=== PATIENT | male | born 1975 | race Caucasian/White ===

== ENCOUNTER 2018-01-10 18:41 | Emergency (ER) ==
[2018-01-10 18:46] VITALS: BP 123/85; TEMP 97.6; BMI 23.6
[2018-01-10] MEDS ORDERED: SODIUM CHLORIDE 500 ML IV STA (20:29)
[2018-01-10] MEDS ORDERED: ZOFRAN 4 MG/2 ML IVP STA (20:30)
--- NOTE | 2018-01-10 20:35 | ED.PDOC ---
General ED Provider: Dr. TABATHA BLAS Chief Complaint: Nausea/Vomiting Stated Complaint: Been vomiting since today morning, 4 times. Time Seen by Physician: 20:34 Mode of Arrival: Walk-In Information Source: Patient Primary Care Provider: KALINA POLLARD Nursing and Triage Documentation Reviewed and Agree: Yes Reviewed sepsis parameters & appropriate labs ordered?: No System Inflammatory Response Syndrome: Not Applicable Sepsis Protocol: For patient's 13 years and over: Temp is 96.8 and below OR 101 and greater Pulse >90 BPM Resp >20/minute Acutely Altered Mental Status Are patient's symptoms suggestive of a new infection, such as: -Pneumonia -Skin, Soft Tissue -Endocarditis -UTI -Bone, Joint Infection -Implantable Device -Acute Abdominal Infection -Wound Infection -Meningitis -Blood Stream Catheter Infection -Unknown GI Complaint Exam - Vomiting/Diarrhea Complaint/Exam Symptoms Are: Still present Episodes of Vomiting over last 24 Hours: 4 Initial Severity: Moderate Current Severity: None Character of Vomiting: Reports: Non-bilious Aggravating: Reports: Food, Liquids Alleviating: Reports: None Associated Signs and Symptoms: Denies: Dizziness, Light-headedness, Melena, Hematemesis, Fever, Abdominal pain, Cramping Non-GI Risk Factors: Reports: None Surgical Obstruction Risk Factors: Reports: None Related Surgical History: Reports: None Abdominal Findings: Present: None Differential Diagnoses: Viral Gastroenteritis, Pancreatitis Review of Systems - Review Of Systems Constitutional: Reports: Malaise Eyes: Reports: No symptoms Ears, Nose, Mouth, Throat: Reports: No symptoms Respiratory: Reports: No symptoms Cardiac: Reports: No symptoms GI: Reports: Nausea, Vomiting : Reports: No symptoms Musculoskeletal: Reports: No symptoms Skin: Reports: No symptoms Neurological: Reports: No symptoms Endocrine: Reports: No symptoms Hematologic/Lymphatic: Reports: No symptoms All Other Systems: Reviewed and Negative Past Medical History - Past Medical History Previously Healthy: No Endocrine: Reports: None Cardiovascular: Reports: None Respiratory: Reports: None Hematological: Reports: None Gastrointestinal: Reports: None Genitourinary: Reports: None Neuro/Psych: Reports: CVA (BLEED 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 VISUAL CUT 2008), Other (MS) Musculoskeletal: Reports: None Cancer: Reports: None - Surgical History General Surgical History: Reports: Back Surgery (L4L5 LAMINECTOMY ) - Family History Family History: Reports: Other (MATERNAL AUNT MS,PER MOTHER SISTER AND COUSIN WITH NVD) - Social History Smoking Status: Current every day smoker, Heavy tobacco smoker Smoking Cessation Counseling Time: > 3 min - 10 min Hx Substance Use: No Alcohol Screening: None Physical Exam - Physical Exam Appearance: Ill-appearing Eyes: RILEY, EOMI, Conjunctiva clear ENT: Ears normal, Nose normal, Oropharynx normal Respiratory: Airway patent, Breath sounds clear, Breath sounds equal, Respirations nonlabored Cardiovascular: RRR, Pulses normal, No rub, No murmur GI/: Soft, Nontender, No masses, Bowel sounds normal, No Organomegaly Musculoskeletal: Normal strength, ROM intact, No edema, No calf tenderness Skin: Warm, Dry, Normal color Neurological: Sensation intact, Motor intact, Reflexes intact, Cranial nerves intact, Alert, Oriented Psychiatric: Affect appropriate, Mood appropriate Interpretation - Radiology Interpretation Radiology Interpretation By: Radiologist Radiology Results: Negative Exam Interpreted: CT Scan Critical Care Note - Critical Care Note Total Time (mins): 15 Course - Course Hematology/Chemistry: 01/10/18 20:45 01/10/18 20:45 Orders, Labs, Meds: Lab Review 01/10/18 01/10/18 01/10/18 20:39 20:45 20:45 WBC 11.48 H RBC 5.20 Hgb 16.9 Hct 45.9 MCV 88.3 MCH 32.5 H MCHC 36.8 H RDW Coeff of [place] 12.3 Plt Count 272 Immature Gran % (Auto) 0.2 Neut % (Auto) 82.9 Lymph % (Auto) 9.4 L [place] % (Auto) 7.1 Eos % (Auto) 0.3 Baso % (Auto) 0.1 Immature Gran # (Auto) 0.0 Neut # 9.5 H Lymph # 1.1 [place] # 0.8 Eos # 0.0 Baso # 0.0 Sodium 140 Potassium 4.3 Chloride 105 Carbon Dioxide 25 Anion Gap 14.3 BUN 9 Creatinine 0.88 Estimated GFR (MDRD) 95.00 BUN/Creatinine Ratio 10.22 Glucose 112 H Calcium 10.0 Total Bilirubin 1.1 AST 30 ALT 75 Alkaline Phosphatase 86 Total Protein 7.2 Albumin 4.5 Globulin 2.7 Albumin/Globulin Ratio 1.67 Amylase 24 L Lipase 12 Influenza A (Rapid) Negative by naat Influenza B (Rapid) Negative by naat Orders Category Date Time Status ED IV/MEDIPORT/POWERPORT .ONCE EMERGENCY 01/10/18 20:30 Active AMYLASE Stat LAB 01/10/18 20:45 Completed CBC W/ AUTO DIFF Stat LAB 01/10/18 20:45 Completed COMPREHENSIVE METABOLIC PANEL Stat LAB 01/10/18 20:45 Completed FLU A/B MOLECULAR Stat LAB 01/10/18 20:39 Completed LIPASE Stat LAB 01/10/18 20:45 Completed 0.9 % Sodium Chloride [Saline Flush] MEDS 01/10/18 20:30 Ordered 1 syr IVF PRN PRN Ondansetron HCl/Pf [Zofran 4 mg/2 ml] MEDS 01/10/18 20:30 Discontinued 4 mg IVP ONCE STA Sodium Chloride 0.9% [Sodium Chloride] 500 ml MEDS 01/10/18 20:[address] ABDOMEN/PELVIS WO CONTRAST Stat RADS 01/10/18 20:30 Completed Medications Generic Name Dose Route Start Last Admin Trade Name Freq PRN Reason Stop Dose Admin Sodium Chloride 1 syr 01/10/18 20:30 01/10/18 20:58 Saline Flush IVF 1 syr PRN PRN Administration To flush IV Discontinued Medications Generic Name Dose Route Start Last Admin Trade Name Freq PRN Reason Stop Dose Admin Sodium Chloride 500 mls @ 500 mls/hr 01/10/18 20:29 01/10/18 20:56 Sodium Chloride IV 01/10/18 21:28 500 mls/hr BOLUS STA Administration Ondansetron HCl 4 mg 01/10/18 20:30 01/10/18 20:55 Zofran 4 Mg/2 Ml IVP 01/10/18 20:31 4 mg ONCE STA Administration Vital Signs: Temp Pulse Resp BP Pulse Ox 01/10/18 18:41 97.6 F 75 20 123/85 96 Departure - Departure Time of Disposition: 22:09 Disposition: HOME SELF-CARE Discharge Problem: Viral gastroenteritis Instructions: Dehydration (ED) Condition: Stable Pt referred to PMD for follow-up: Yes IPMP verified?: No Additional Instructions: soft diet for 3-4 days Increase Hydration f/u with PMD Prescriptions: Ondansetron [Zofran Odt] 4 mg PO Q8H #20 tab.rapdis Allergies/Adverse Reactions: Allergies No Known Allergies Allergy (Verified 01/10/18 18:48) Home Medications: Ambulatory Orders Fingolimod HCl [Gilenya] 0.5 mg PO DAILY 02/08/14 Ondansetron [Zofran Odt] 4 mg PO Q8H #20 tab.rapdis 01/10/18 Disposition Discussed With: Patient, Family
--- NOTE | 2018-01-10 21:32 | CT ---
EXAM: CT scan abdomen pelvis without contrast HISTORY: Nausea vomiting abdominal pain COMPARISON: CT scan abdomen pelvis 11/09/2016 FINDINGS: Contiguous axial images obtained from lung bases to the symphysis pubis without contrast u tilizing 3-mm collimation. Sagittal and coronal reconstructions were imaged and reviewed.. The visu alized lung bases are clear. The gallbladder is fluid filled without cholelithiasis. The liver, panc reas, spleen and adrenal glands have normal unenhanced CT appear redemonstrated are numerous nonobstr uctive renal calculi bilaterally. There is no evidence of ureterolithiasis.. Atherosclerotic change s are seen involving the aorta without aneurysm formation. There is umbilical hernia containing only fat. Prostate gland normal in size. The bladder is unremarkable.. There is a normal appendix. The re is degenerative changes are noted at L4-L5. IMPRESSION: Nonobstructive bilateral nephrolithiasis. ASVD without aneurysm. Small umbilical hernia containing only fat.
== END 2018-01-10 22:42 | disposition home or self-care (01) ==
LOC: ED 18:41
DX: A08.4 Viral intestinal infection, unspecified (principal); G35 Multiple sclerosis; Z86.73 Personal history of transient ischemic attack (TIA), and cerebral infarction without residual deficits; F17.210 Nicotine dependence, cigarettes, uncomplicated
CPT/HCPCS: 36415; 80053; 82150; 83690; 85025; 87502; 96361; 96374; 99283

== ENCOUNTER 2018-02-17 14:00 | Outpatient (RCR) ==
--- NOTE | 2018-01-26 09:30 | RS.OPPTEV2 ---
Date of Note: 01/25/18 Visit #: 1 Date of Evaluation: 01/25/18 Payer Source: Insurance Surgery Performed?: No Treatment Diagnosis: L shld impingement with tight Posterior capsule, scapular dyskinesis History of Condition/Mechanism of Injury:: pt states he has had no specific injury noted. States that has been hurting since 2014. Prior Level of Function.....Patient was independent with: ADL's, Self Care, Work /Vocation, Ambulation/Mobility, Community Integration/Access Functional Limitations: Sleep, Reaching, Pushing, Pulling, Lifting, Carrying, Sitting Current Subjective/complaints:: pt states that his shld has been hurting since 2014 and finally found a doctor that took it seriously. pt states his L side was affected by his CVA in 2008 as well as was diagnosed with multiple sclerosis in 2008. Treatment Side (optional): Left *Precautions: pt with decreased sensation L side Medical History Medical History: CVA/TIA Medical History Comments:: multiple sclerosis Surgical History: Lumbar Spine Smoking Status: Current every day smoker Patient's Goals: decrease L shld pain. Pain Assessment - Pain Description Pain Location: L shld Pain Description: Sharp, Aching Current Pain Intensity: 5/10 Functional Outcome Measure UE Functional Index: 35 (56%) - G Codes & Severity Modifier G Codes & Modifier: n/a Source of G Code score: n/a Observation - Observation Posture: Forward Head, Rounded Shoulders, Increased Thoracic Kyphosis Handedness: Right Gait - Gait Pattern General Gait Pattern Observation: Ataxic Gait Gait Comments: pt with mild ataxic gait General Range of Motion: BLE WFL's. RUE WFL's Muscle Strength: RUE 5/5. RLE 5/5. LLE hip flex 4+/5, knee flex/ext 4+/5. LUE elbow flex/ext 4/5, slight decreased development director on L Shoulder ROM: Right WFL's Shoulder Muscle Strength: Right WFL's - Left Shoulder ROM Left Shoulder Flexion: 148 (AAROM) Left Shoulder Abduction: 128 (AAROM) Left Shoulder External Rotation: 38 (AAROM) Left Shoulder ROM Limitations: Soft Tissue Tightness, Muscle Weakness, Pain - Left Shoulder Strength Left Shoulder Flexion: 3- Fair- Left Shoulder Extension: 3 Fair Left Shoulder Abduction: 3- Fair- Left Shoulder Adduction: 3+ Fair+ Left Shoulder External Rotation: 3- Fair- Left Shoulder Internal Rotation: 3+ Fair+ - Special Tests Shoulder Empty Can (Supraspinatus) Test: Negative Left Shoulder Drop Arm Test: Negative Left Sternoclavicular Joint Stress Test: Negative Left Comments: pt with pain with all ROM L shld worse with flex, abd and ER. Observation of scapula with ROM: L scapula with limited movement and maltracking of scapula. R scapula with smooth movement through ROM. Palpation Palpation Findings: Tenderness, Muscle Guarding Comments:: muscle tenderness, guarding to palpation over biceps tendon, as well as superior spine of scapula Sensation - Sensation Right Upper Extremity: Intact/Normal Left Upper Extremity: Impaired Right Lower Extremity: Intact/Normal Left Lower Extremity: Impaired (n/t LUE and LLE) Balance - Sitting Balance Static Sitting Balance: Normal Dynamic Sitting Balance: Normal - Standing Balance Static Standing Balance: Normal Dynamic Standing Balance: Good - Comments Balance Assessment Comments: pt with mild ataxic gait - Treatment Modality: Ultrasound Parameters/Method Applied: 1.5w/cm2 x 7 mins Treatment Area: L shld focus in area of biceps tendon Patient Position: Supine - Heat/Cryotherapy Treatment: Cryotherapy Comments:: L shld Interventions - Exercise/Activities/Manual Therapy Exercises/Activities: pt performed pendulum ex as well as scapular retraction, shld shrugs, wall angels Manual Therapy: n/a HOME EXERCISE PROGRAM: pt given written HEP including stretch for post. capsule , scapular retraction, shld shrugs, pendulum, wall angels. - Charges Timed Code Treatment Minutes: 48 Total Treatment Time: 60 Procedures billed for this date of service:: eval med US, CP EVALUATION COMPLEXITY LEVEL EVALUATION COMPLEXITY LEVEL: HISTORY: Medium (CVA, MS, L shld impingement), EXAM OF BODY SYSTEMS: Medium (strength, pain, sensation, posture), CLINICAL PRESENTATION: Medium, CLINICAL DECISION MAKING: Medium Assessment Assessment: pt presents with L shld impingement, tight posterior capsule, scapular dyskinesis, shld pain, decreased strength, decreased ROM. Patient Education: Home Exercise Program, Education of Plan of Care Rehab Potential: Good Short Term Goals Goal #1: pt rate pain < 5/10 L shld Goal to be met by: 02/08/18 Goal #2: Improved ROM L shld flex 155 abd 135 ER 45 Goal to be met by: 02/08/18 Goal #3: Improve scapular mobility in pain free range. Goal to be met by: 02/08/18 Steam Press Operator Goals Goal #1: pt rate pain <2/10 L shld Goal to be met by: 02/22/18 Goal #2: pt independent with HEP Goal to be met by: 02/22/18 Goal #3: Improved ROM L shld flex 165 abd 155, ER 60 Goal to be met by: 02/22/18 Goal #4: pt report improved ability to perform household tasks with less pain Goal to be met by: 02/22/18 Plan - Treatment to be Provided Procedures: Therapeutic Exercises, Therapeutic Activity, Manual Therapy, Massage , Patient Education Modalities: Electrical Stimulation, Ultrasound/Phonophoresis, Cryotherapy - Treatment Plan Frequency: 3 X week Duration: 4 weeks ORDER # VISITS AND/OR THROUGH DATE: 02/24/18 - Treatment Code (1) Pain in joint, shoulder region Code(s): M25.519 - PAIN IN UNSPECIFIED SHOULDER Qualifiers: Laterality: left Qualified Code(s): M25.512 - Pain in left shoulder (2) Impingement syndrome, shoulder, left Code(s): M75.42 - IMPINGEMENT SYNDROME OF LEFT SHOULDER (3) Scapular dyskinesis Code(s): G25.89 - OTHER SPECIFIED EXTRAPYRAMIDAL AND MOVEMENT DISORDERS (4) Muscle weakness Code(s): M62.81 - MUSCLE WEAKNESS (GENERALIZED)
--- NOTE | 2018-01-26 16:33 | RS.OPPTDN ---
Subjective Date of Note: 01/26/18 Visit #: 2 Date of Evaluation: 01/25/18 Payer Source: Insurance Treatment Diagnosis: L shld impingement with tight Posterior capsule, scapular dyskinesis Current Subjective/complaints:: Patient reports left shoulder pain that limits daily activity. States he frequently is in supine position to try to relieve pain. *Precautions: pt with decreased sensation L side Pain Assessment - Pain Description Pain Location: Left shoulder Pain Description: Aching Current Pain Intensity: 5/10 Other Comments regarding Pain:: Aching all the time, but is more of a "nerve pain" with certain movements. - Treatment Modality: US with ES (Comb.) Parameters/Method Applied: [id number] to the left shoulder joint and scapular region. Patient Position: Sitting - Heat/Cryotherapy Treatment: Hot Pack, Cryotherapy (HP [id number] to the left shoulder prior to USCOM and EX. CP [id number] to shoulder following. ) Interventions - Exercise/Activities/Manual Therapy Exercises/Activities: Scap retraction. Isometric shoulder extension with retraction. AAROM of the left shoulder. Shouler shrugs. Discussed dorrway ant chest stretch, 3 position. Total minutes of Exercise: 10mins Manual Therapy: [id number] Friction massage to the left shoulder biceps tendon and passive stretch. Mobilization of the left scapula. Myofascial release at upper traps and posterior shoulder joint. Shoulder joint and scap mobs. Posterior capsule stretch. Anterior chest stretch with towel roll along thoracic spine. Total minutes of Manual Therapy: 18mins HOME EXERCISE PROGRAM: pt given written HEP including stretch for post. capsule , scapular retraction, shld shrugs, pendulum, wall angels. Doorway stretch, 3 postion and isometric bilateral shoulder ext with scap retraction. - Charges Timed Code Treatment Minutes: 40mins Total Treatment Time: 62mins Procedures billed for this date of service:: HP, USCOM, MT, EX Assessment: Patient motivated to work on HEP. Reported decrease in pain following treatment. Patient Education: Education of diagnosis, Body/Joint mechanics, Home Exercise Program Comments: Patient education of shoulder mechanics and HEP. Patient given copy of new exercises. Patient demonstrates compliance with HEP?: Yes Short Term Goals Goal #1: pt rate pain < 5/10 L shld Goal to be met by: 02/08/18 Progress towards Goal:: Progressing Goal #2: Improved ROM L shld flex 155 abd 135 ER 45 Goal to be met by: 02/08/18 Progress towards Goal:: Progressing Goal #3: Improve scapular mobility in pain free range. Goal to be met by: 02/08/18 Shelter Goals Goal #1: pt rate pain <2/10 L shld Goal to be met by: 02/22/18 Goal #2: pt independent with HEP Goal to be met by: 02/22/18 Progress towards goal: Progressing Goal #3: Improved ROM L shld flex 165 abd 155, ER 60 Goal to be met by: 02/22/18 Goal #4: pt report improved ability to perform household tasks with less pain Goal to be met by: 02/22/18 Plan PLAN OF CARE EXPIRES ON:: 02/22/18 ORDER # VISITS AND/OR THROUGH DATE: 02/22/18 PLAN: Continue modalities and progress HEP to reduce pain and increase functional activity level.
--- NOTE | 2018-02-01 09:07 | RS.OPPTDN ---
Subjective Date of Note: 01/31/18 Visit #: 3 Date of Evaluation: 01/25/18 Payer Source: Insurance Treatment Diagnosis: L shld impingement with tight Posterior capsule, scapular dyskinesis Current Subjective/complaints:: Patient reports he is working on HEP. Reports left shoulder pain is better following treatment. *Precautions: pt with decreased sensation L side Pain Assessment - Pain Description Pain Location: Left shoulder and scapular region Current Pain Intensity: moderate, mild following treatment - Treatment Modality: US with ES (Comb.) Parameters/Method Applied: [id number] with US at 1.5w/cm2 and Estim at 8-9 p.v. to the left shoulder with focus on anterior joint, posterior joint, and distal upper traps. Patient Position: Sitting Interventions - Exercise/Activities/Manual Therapy Exercises/Activities: AAROM of the left shoulder. Scap retraction. Isometric shoulder extension with retraction. Shouler shrugs. Passive stretch of lats with UE overhead. Blue theraband for bilateral shoulder ER and scapular retraction. Discussed stretching in HEP. Total minutes of Exercise: 15mins Manual Therapy: [id number] Friction massage to the left shoulder biceps tendon and passive stretch. Mobilization of the left scapula. Myofascial release at upper traps and posterior shoulder joint. Shoulder joint and scap mobs. Posterior capsule stretch. Anterior chest stretch. Blue theraband for bilateral shoulder ER and scap retraction. Total minutes of Manual Therapy: 15mins HOME EXERCISE PROGRAM: pt given written HEP including stretch for post. capsule , scapular retraction, shld shrugs, pendulum, wall angels. Doorway stretch, 3 postion and isometric bilateral shoulder ext with scap retraction. - Charges Timed Code Treatment Minutes: 40mins Total Treatment Time: 45mins Procedures billed for this date of service:: EMELY, CLARISSA, EX Assessment: Patient responding well to treatment with reports od decreased pain with stretching and AROM. Patient Education: Body/Joint mechanics, Home Exercise Program, Activity Modification Patient demonstrates compliance with HEP?: Yes Short Term Goals Goal #1: pt rate pain < 5/10 L shld Goal to be met by: 02/08/18 Progress towards Goal:: Progressing Goal #2: Improved ROM L shld flex 155 abd 135 ER 45 Goal to be met by: 02/08/18 Progress towards Goal:: Progressing Goal #3: Improve scapular mobility in pain free range. Goal to be met by: 02/08/18 Progress towards Goal:: Progressing Blind Stitch Machine Operator Goals Goal #1: pt rate pain <2/10 L shld Goal to be met by: 02/22/18 Goal #2: pt independent with HEP Goal to be met by: 02/22/18 Progress towards goal: Progressing Goal #3: Improved ROM L shld flex 165 abd 155, ER 60 Goal to be met by: 02/22/18 Goal #4: pt report improved ability to perform household tasks with less pain Goal to be met by: 02/22/18 Plan PLAN OF CARE EXPIRES ON:: 02/22/18 ORDER # VISITS AND/OR THROUGH DATE: 02/22/18 PLAN: Continue modalities and progress exercise to reduce pain and increase functional use of the left UE.
--- NOTE | 2018-02-03 08:41 | RS.OPPTDN ---
Subjective Date of Note: 02/02/18 Visit #: 4 Date of Evaluation: 01/25/18 Payer Source: Insurance Treatment Diagnosis: L shld impingement with tight Posterior capsule, scapular dyskinesis Current Subjective/complaints:: Patient reports continued left shoulder pain, but is working on HEP with focus on stretching. Reports some pain reduction following treatment. *Precautions: pt with decreased sensation L side Pain Assessment - Pain Description Pain Location: Left shoulder and scapular region Current Pain Intensity: mild to mod - Treatment Modality: US with ES (Comb.) Parameters/Method Applied: [id number] US to 1.5w/cm2 and Estim 9-10p.v. to the left shoulder joint and distal upper traps. Patient Position: Right Sidelying - Heat/Cryotherapy Treatment: Cryotherapy ([id number] to the left shoulder following treatment. Patient in supine. ) Interventions - Exercise/Activities/Manual Therapy Exercises/Activities: PROM and end-range stretching of the left shoulder. AAROM of the left shoulder. Isometric shoulder extension with retraction. Shoulder shrugs. Began serratus punch. Reviewed IR stretch with towel behind the back. Blue theraband for bilateral shoulder ER and scapular retraction. Patient given copy of additional exercises. Total minutes of Exercise: 18mins Manual Therapy: [id number] Friction massage to the left shoulder biceps tendon and passive stretch. Mobilization of the left scapula. Myofascial release at upper traps and posterior shoulder joint. Shoulder joint and scap mobs. Posterior capsule stretch. Total minutes of Manual Therapy: 15mins HOME EXERCISE PROGRAM: pt given written HEP including stretch for post. capsule , scapular retraction, shld shrugs, pendulum, wall angels. Doorway stretch, 3 postion and isometric bilateral shoulder ext with scap retraction. IR stretch with towel behind back. - Charges Timed Code Treatment Minutes: 45mins Total Treatment Time: 60mins Procedures billed for this date of service:: USCOM, EX, MT, CP Assessment: Patient progressing with stretching. May need additional treatment and joint correction exercise to see more pain relief. Patient Education: Body/Joint mechanics, Home Exercise Program Patient demonstrates compliance with HEP?: Yes Short Term Goals Goal #1: pt rate pain < 5/10 L shld Goal to be met by: 02/08/18 Progress towards Goal:: Progressing Goal #2: Improved ROM L shld flex 155 abd 135 ER 45 Goal to be met by: 02/08/18 Progress towards Goal:: Progressing Goal #3: Improve scapular mobility in pain free range. Goal to be met by: 02/08/18 Progress towards Goal:: Progressing Longterm Goals Goal #1: pt rate pain <2/10 L shld Goal to be met by: 02/22/18 Goal #2: pt independent with HEP Goal to be met by: 02/22/18 Progress towards goal: Progressing Goal #3: Improved ROM L shld flex 165 abd 155, ER 60 Goal to be met by: 02/22/18 Goal #4: pt report improved ability to perform household tasks with less pain Goal to be met by: 02/22/18 Plan PLAN OF CARE EXPIRES ON:: 02/22/18 ORDER # VISITS AND/OR THROUGH DATE: 02/22/18 PLAN: COntinue modalities and progress exercise to reduce pain and increase functional activity level.
--- NOTE | 2018-02-07 16:36 | RS.OPPTDN ---
Subjective Date of Note: 02/07/18 Visit #: 5 Date of Evaluation: 01/25/18 Payer Source: Insurance Treatment Diagnosis: L shld impingement with tight Posterior capsule, scapular dyskinesis Current Subjective/complaints:: Patient reports she is not sure of how much progress he is making. He then reports he has noticed less pain in the left shoulder when driving, which "killed" him prior to starting therapy. *Precautions: pt with decreased sensation L side Pain Assessment - Pain Description Pain Location: Left shoulder Current Pain Intensity: 5/10 Other Comments regarding Pain:: States pain was 7-8/10 on average prior to therapy. - Treatment Modality: US with ES (Comb.) Parameters/Method Applied: [id number] US at 1.5w/cm2 and Estim 9-10p.v. to the left shoulder joint with focus on anterior joint for biceps. Patient Position: Right Sidelying Interventions - Exercise/Activities/Manual Therapy Exercises/Activities: PROM and end-range stretching of the left shoulder. AAROM of the left shoulder. Isometric shoulder flex, ext, add, abd, IR, and ER, multiple reps. Shoulder shrugs and serratus punch. All in supine. In sitting, isometrics, shoulder shrugs and scap retraction. Continues theraband with HEP. Total minutes of Exercise: 14mins Manual Therapy: [id number] Friction massage to the left shoulder biceps tendon and passive stretch. Mobilization of the left scapula. Myofascial release at upper traps and posterior shoulder joint. Shoulder joint and scap mobs. Posterior capsule stretch. HOME EXERCISE PROGRAM: pt given written HEP including stretch for post. capsule , scapular retraction, shld shrugs, pendulum, wall angels. Doorway stretch, 3 postion and isometric bilateral shoulder ext with scap retraction. IR stretch with towel behind back. - Charges Timed Code Treatment Minutes: 40mins Total Treatment Time: 45mins Procedures billed for this date of service:: USCOM, EX, MT Assessment: Patient unsure of progress but then reports reduction in pain level with driving. Patient Education: Home Exercise Program Patient demonstrates compliance with HEP?: Yes Short Term Goals Goal #1: pt rate pain < 5/10 L shld Goal to be met by: 02/08/18 Progress towards Goal:: Partially Met Goal #2: Improved ROM L shld flex 155 abd 135 ER 45 Goal to be met by: 02/08/18 Progress towards Goal:: Progressing Goal #3: Improve scapular mobility in pain free range. Goal to be met by: 02/08/18 Progress towards Goal:: Progressing Residential Goals Goal #1: pt rate pain <2/10 L shld Goal to be met by: 02/22/18 Goal #2: pt independent with HEP Goal to be met by: 02/22/18 Progress towards goal: Partially Met Goal #3: Improved ROM L shld flex 165 abd 155, ER 60 Goal to be met by: 02/22/18 Goal #4: pt report improved ability to perform household tasks with less pain Goal to be met by: 02/22/18 Plan PLAN OF CARE EXPIRES ON:: 02/22/18 ORDER # VISITS AND/OR THROUGH DATE: 02/22/18 PLAN: Continue modalities and progress exercise to reduce pain and increase functional use of the left UE.
--- NOTE | 2018-02-14 15:43 | RS.OPPTDN ---
Subjective Date of Note: 02/10/18 Visit #: 6 Date of Evaluation: 01/25/18 Payer Source: Insurance Treatment Diagnosis: L shld impingement with tight Posterior capsule, scapular dyskinesis Current Subjective/complaints:: Reports pain may be a little better. He can drive without left shoulder pain. *Precautions: pt with decreased sensation L side Pain Assessment - Pain Description Pain Location: Left shoulder Current Pain Intensity: Does not rate Other Comments regarding Pain:: Reports pain is worse at night, but he is sleeping better. - Treatment Modality: Ultrasound Parameters/Method Applied: [id number] at 1.5w/cm2 to the left shoulder with focus on the anterior shoulder joint/anterior. - Heat/Cryotherapy Treatment: Cryotherapy (5mins ice massage to the left anterior shoulder joint following friction massage. Patient in supine, ) Interventions - Exercise/Activities/Manual Therapy Exercises/Activities: PROM and end-range stretching of the left shoulder. AAROM of the left shoulder. Total minutes of Exercise: 5mins Manual Therapy: [id number] Friction massage to the left shoulder biceps tendon and passive stretch. Mobilization of the left scapula. Myofascial release at upper traps and posterior shoulder joint. Shoulder joint and scap mobs. Posterior capsule stretch. Total minutes of Manual Therapy: 14mins HOME EXERCISE PROGRAM: pt given written HEP including stretch for post. capsule , scapular retraction, shld shrugs, pendulum, wall angels. Doorway stretch, 3 postion and isometric bilateral shoulder ext with scap retraction. IR stretch with towel behind back. - Charges Timed Code Treatment Minutes: 35mins Total Treatment Time: 40mins Procedures billed for this date of service:: US, MT, CP Assessment: Patient reporting some progress with ability to perform functional activities without increased pain. Patient Education: Home Exercise Program Short Term Goals Goal #1: pt rate pain < 5/10 L shld Goal to be met by: 02/08/18 Progress towards Goal:: Partially Met Goal #2: Improved ROM L shld flex 155 abd 135 ER 45 Goal to be met by: 02/08/18 Progress towards Goal:: Progressing Goal #3: Improve scapular mobility in pain free range. Goal to be met by: 02/08/18 Progress towards Goal:: Progressing Long-Term Goals Goal #1: pt rate pain <2/10 L shld Goal to be met by: 02/22/18 Goal #2: pt independent with HEP Goal to be met by: 02/22/18 Progress towards goal: Met Goal #3: Improved ROM L shld flex 165 abd 155, ER 60 Goal to be met by: 02/22/18 Progress towards goal: Partially Met Goal #4: pt report improved ability to perform household tasks with less pain Goal to be met by: 02/22/18 Plan PLAN OF CARE EXPIRES ON:: 02/22/18 ORDER # VISITS AND/OR THROUGH DATE: 02/22/18 PLAN: Continue modalities, friction massage, and exericse to reduce pain and increase functional use of the left UE.
--- NOTE | 2018-02-14 16:18 | RS.OPPTDN ---
Subjective Date of Note: 02/14/18 Visit #: 7 Date of Evaluation: 01/25/18 Payer Source: Insurance Treatment Diagnosis: L shld impingement with tight Posterior capsule, scapular dyskinesis Current Subjective/complaints:: Patient reports left shoulder ROM is better, pain in not as intense, and he is sleeping more. He continues to have pain that limits the use of the left UE with some daily activities. *Precautions: pt with decreased sensation L side Pain Assessment - Pain Description Pain Location: Left shoulder Current Pain Intensity: mod Other Comments regarding Pain:: Patient reports pain with friction massage to the anterior shoulder joint and joint pain with end range stretching into flexion and abduction. - Treatment Modality: US with ES (Comb.) Parameters/Method Applied: [id number] US at 1.5w/cm2 and Estim at 8-9 p.v. to the left shoulder with focus on anterior joint. Patient Position: Supine - Treatment Modality: Class 4 Laser Parameters/Method Applied: Trial Laser 10mins Chronic Shoulder Pain protocol to the left shoulder joint. - Heat/Cryotherapy Treatment: Cryotherapy (ice massage to the left anterior shoulder joint at biceps tendon. 5mins. ) Interventions - Exercise/Activities/Manual Therapy Exercises/Activities: PROM and end-range stretching of the left shoulder. AAROM of the left shoulder. Isometric shoulder flex, ext, add, abd, IR, and ER. Doorway stretching. Total minutes of Exercise: 15mins Manual Therapy: [id number] Friction massage to the left shoulder biceps tendon and passive stretch. Mobilization of the left scapula and shoulder joint. Myofascial release at upper traps and posterior shoulder joint. Posterior capsule stretch. Ise massage. Total minutes of Manual Therapy: 15mins HOME EXERCISE PROGRAM: pt given written HEP including stretch for post. capsule , scapular retraction, shld shrugs, pendulum, wall angels. Doorway stretch, 3 postion and isometric bilateral shoulder ext with scap retraction. IR stretch with towel behind back. - Charges Timed Code Treatment Minutes: 40mins(50mins) Total Treatment Time: 50mins Procedures billed for this date of service:: US, MT, EX, (Trial Laser) Assessment: Patient reporting slow improvement. He shoulder benefit from continued friction massage to the biceps tendon. Patient Education: Home Exercise Program Patient demonstrates compliance with HEP?: Yes Short Term Goals Goal #1: pt rate pain < 5/10 L shld Goal to be met by: 02/08/18 Progress towards Goal:: Partially Met Goal #2: Improved ROM L shld flex 155 abd 135 ER 45 Goal to be met by: 02/08/18 Progress towards Goal:: Partially Met Goal #3: Improve scapular mobility in pain free range. Goal to be met by: 02/08/18 Progress towards Goal:: Partially Met Safety Associate Goals Goal #1: pt rate pain <2/10 L shld Goal to be met by: 02/22/18 Goal #2: pt independent with HEP Goal to be met by: 02/22/18 Progress towards goal: Met Goal #3: Improved ROM L shld flex 165 abd 155, ER 60 Goal to be met by: 02/22/18 Progress towards goal: Partially Met Goal #4: pt report improved ability to perform household tasks with less pain Goal to be met by: 02/22/18 Progress towards goal: Partially Met Plan PLAN OF CARE EXPIRES ON:: 02/22/18 ORDER # VISITS AND/OR THROUGH DATE: 02/22/18 PLAN: Continue modalities, manual therapy, and exercise to reduce pain and increase functional use of the left UE.
--- NOTE | 2018-02-20 08:32 | RS.OPPTDN ---
Subjective Date of Note: 02/17/18 Visit #: 8 Date of Evaluation: 01/25/18 Payer Source: Insurance Treatment Diagnosis: L shld impingement with tight Posterior capsule, scapular dyskinesis Current Subjective/complaints:: pt states that he has been doing his stretches at home. He states he is still having discomfort, however not as intense as before. He states that his pain is more of an ache now instead of sharp pain. *Precautions: pt with decreased sensation L side Pain Assessment - Pain Description Pain Location: L shld Pain Description: Aching Other Comments regarding Pain:: States his pain is not keeping him awake now. - Treatment Modality: US with ES (Comb.) Parameters/Method Applied: US 1.5w/cm2, estim 10 p.v. Treatment Area: anterior L shld as well as posterior L shld Patient Position: Right Sidelying Comments: anterior: supine, posterior shld R sidelying - Heat/Cryotherapy Comments:: ice massage to L ant shld area of biceps tendon Interventions - Exercise/Activities/Manual Therapy Exercises/Activities: pt received PROM with stretching at end range L shld flex , abd, rotation. pt performed wall stretching as well as pulleys. pt is very aggressive with stretch, possibly too aggressive advised pt to not pull so aggressively on piyush due to could possibly injure shld. pt also performed isometric strengthening ex. Manual Therapy: pt received friction massage to ant shld joint as well as ice massage HOME EXERCISE PROGRAM: pt given written HEP including stretch for post. capsule , scapular retraction, shld shrugs, pendulum, wall angels. Doorway stretch, 3 postion and isometric bilateral shoulder ext with scap retraction. IR stretch with towel behind back. - Charges Timed Code Treatment Minutes: 58 Total Treatment Time: 58 Procedures billed for this date of service:: us/estim combo, manual, ex Assessment: pt is progressing slowly toward goals. pt has demonstrated improvement with ROM, decreased pain. pt continues to be limited with flex, abd , ER as well as continues with aching pain in L shld, reports most pain in ant shld. Patient demonstrates compliance with HEP?: Yes Short Term Goals Goal #1: pt rate pain < 5/10 L shld Goal to be met by: 02/08/18 Progress towards Goal:: Met Goal #2: Improved ROM L shld flex 155 abd 135 ER 45 Goal to be met by: 02/08/18 Progress towards Goal:: Partially Met Goal #3: Improve scapular mobility in pain free range. Goal to be met by: 02/08/18 Progress towards Goal:: Partially Met Alf Goals Goal #1: pt rate pain <2/10 L shld Goal to be met by: 02/22/18 Progress towards goal: Progressing Goal #2: pt independent with HEP Goal to be met by: 02/22/18 Progress towards goal: Met Goal #3: Improved ROM L shld flex 165 abd 155, ER 60 Goal to be met by: 02/22/18 Progress towards goal: Partially Met Goal #4: pt report improved ability to perform household tasks with less pain Goal to be met by: 02/22/18 Progress towards goal: Partially Met Plan PLAN OF CARE EXPIRES ON:: 02/22/18 ORDER # VISITS AND/OR THROUGH DATE: 02/22/18 PLAN: continue to progress with stretching as well as strengthening L shld
== END 2018-02-18 ==
PROVIDERS: ATTEND Orthopaedic Surgery
DX: M75.42 Impingement syndrome of left shoulder (principal); M25.512 Pain in left shoulder; G25.89 Other specified extrapyramidal and movement disorders; M62.81 Muscle weakness (generalized)

== ENCOUNTER 2018-03-20 13:00 | Outpatient (RCR) ==
--- NOTE | 2018-02-20 16:24 | RS.OPPTDN ---
Subjective Date of Note: 02/20/18 Visit #: 9 Date of Evaluation: 01/25/18 Payer Source: Insurance Treatment Diagnosis: L shld impingement with tight Posterior capsule, scapular dyskinesis Current Subjective/complaints:: Patient reports he has improved left shoulder ROM with less pain. Reports he is able to get in pain free positions to sleep. Patient agrees the treatment of USCOM and friction massage followed by stretching have been the most effective. *Precautions: pt with decreased sensation L side Pain Assessment - Pain Description Pain Location: Left shoulder Current Pain Intensity: does not rate on scale Other Comments regarding Pain:: Reports pain not as intense or constant. Reports AROM with only pain at end range. - Treatment Modality: US with ES (Comb.) Parameters/Method Applied: [id number] US at 1.5w/cm2 and 9p.v. to the left anterior shoulder joint prior to MT. Patient Position: Supine - Heat/Cryotherapy Treatment: Cryotherapy (x5mins ice massage to the left anterior shoulder. Patient in supine. ) Interventions - Exercise/Activities/Manual Therapy Exercises/Activities: PROM and end-range stretching of the left shoulder. AAROM of the left shoulder. Isometric shoulder flex, ext, add, abd, IR, and ER. Doorway stretching. Total minutes of Exercise: 8mins Manual Therapy: [id number] Friction massage to the left shoulder biceps tendon and passive stretch. Mobilization of the left scapula and shoulder joint. Myofascial release at upper traps and posterior shoulder joint. Distraction of the shoulder joint. HOME EXERCISE PROGRAM: pt given written HEP including stretch for post. capsule , scapular retraction, shld shrugs, pendulum, wall angels. Doorway stretch, 3 postion and isometric bilateral shoulder ext with scap retraction. IR stretch with towel behind back. - Charges Timed Code Treatment Minutes: 38mins Total Treatment Time: 45mins Procedures billed for this date of service:: USCOM, MT, CP Assessment: Patient reporting improvement in functional activities even though he is unable to rate his pain on the pain scale. Patient Education: Home Exercise Program Patient demonstrates compliance with HEP?: Yes Short Term Goals Goal #1: pt rate pain < 5/10 L shld Goal to be met by: 02/08/18 Progress towards Goal:: Partially Met Goal #2: Improved ROM L shld flex 155 abd 135 ER 45 Goal to be met by: 02/08/18 Progress towards Goal:: Partially Met Goal #3: Improve scapular mobility in pain free range. Goal to be met by: 02/08/18 Progress towards Goal:: Partially Met Senior Living Goals Goal #1: pt rate pain <2/10 L shld Goal to be met by: 02/22/18 Goal #2: pt independent with HEP Goal to be met by: 02/22/18 Progress towards goal: Met Goal #3: Improved ROM L shld flex 165 abd 155, ER 60 Goal to be met by: 02/22/18 Progress towards goal: Partially Met Goal #4: pt report improved ability to perform household tasks with less pain Goal to be met by: 02/22/18 Progress towards goal: Partially Met Plan PLAN OF CARE EXPIRES ON:: 02/22/18 ORDER # VISITS AND/OR THROUGH DATE: 02/22/18 PLAN: Continue modalities, manual therapy, and exercise to reduce pain and progress functional use of the left UE.
--- NOTE | 2018-02-23 16:19 | RS.OPPTDN ---
Subjective Date of Note: 02/23/18 Visit #: 10 Date of Evaluation: 01/25/18 Payer Source: Insurance Treatment Diagnosis: L shld impingement with tight Posterior capsule, scapular dyskinesis Current Subjective/complaints:: Patient continues to have difficulty rating his left shoulder pain, but reports improvement in pain throughout the day with ADL' s. *Precautions: pt with decreased sensation L side Pain Assessment - Pain Description Pain Location: Left shoulder Pain Description: Sharp, Aching Other Comments regarding Pain:: Patient cannot rate pain on scale, but reports pain is less intense with functional daily activities. - Treatment Modality: US with ES (Comb.) Parameters/Method Applied: [id number] US at 1.5w/cm2 and Estim at 8-9p.v. to the left shoulder joint with focus on the anterior joint. USCOM prior to MT and EX. Patient Position: Supine - Heat/Cryotherapy Treatment: Cryotherapy (x8mins ice massage to the left shoulder joint with focus on the anterior joint. Patient in supine. ) Interventions - Exercise/Activities/Manual Therapy Exercises/Activities: PROM and end-range stretching of the left shoulder. AAROM of the left shoulder. Isometric shoulder flex, ext, add, abd, IR, and ER. Green theraband for serratus punch. Supine with towel roll for anterior chest and biceps stretch. Reveiwed HEP including doorway stretching. Ended with additional long stretching of the left shoulder. Total minutes of Exercise: 15mins Manual Therapy: [id number] Friction massage to the left shoulder biceps tendon and passive stretch. Mobilization of the left scapula and shoulder joint. Myofascial release at upper traps and posterior shoulder joint. Trigger point release at the infraspinatus. Distraction of the shoulder joint. Total minutes of Manual Therapy: 20mins HOME EXERCISE PROGRAM: pt given written HEP including stretch for post. capsule , scapular retraction, shld shrugs, pendulum, wall angels. Doorway stretch, 3 postion and isometric bilateral shoulder ext with scap retraction. IR stretch with towel behind back. - Charges Timed Code Treatment Minutes: 55mins Total Treatment Time: 55mins Procedures billed for this date of service:: USCOM, MT, EX, CP Assessment: Patient responding to treatment with reports of reduced left shoulder pain with functional activities. Meeting goals with PROM of the left shoulder and demos potential for progress with AROM. Patient Education: Home Exercise Program Patient demonstrates compliance with HEP?: Yes Short Term Goals Goal #1: pt rate pain < 5/10 L shld Goal to be met by: 02/08/18 Progress towards Goal:: Partially Met Goal #2: Improved ROM L shld flex 155 abd 135 ER 45 Goal to be met by: 02/08/18 Progress towards Goal:: Partially Met Comments:: PROM left shoulder flex 170, abd 150, and ER 75 degrees in supine. Goal #3: Improve scapular mobility in pain free range. Goal to be met by: 02/08/18 Progress towards Goal:: Met Retirement Goals Goal #1: pt rate pain <2/10 L shld Goal to be met by: 02/22/18 Progress towards goal: Progressing Goal #2: pt independent with HEP Goal to be met by: 02/22/18 Progress towards goal: Met Goal #3: Improved ROM L shld flex 165 abd 155, ER 60 Goal to be met by: 02/22/18 Progress towards goal: Partially Met Goal #4: pt report improved ability to perform household tasks with less pain Goal to be met by: 02/22/18 Progress towards goal: Met Plan PLAN OF CARE EXPIRES ON:: 02/23/18 ORDER # VISITS AND/OR THROUGH DATE: 02/23/18 PLAN: Plan extended one day to allow patient to complete the week of treatment. Will hold treatment until patient has follow-up with physician. May continue with new physician orders.
--- NOTE | 2018-03-15 13:51 | RS.PTSUM ---
Progress Note/Summary Date of Note: 03/14/18 Date of Evaluation: 01/25/18 Number of Visits: 11 Reporting Period for this Progress Note: 01/25/18-03/14/18 Current Complaints/Gains: pt reports that he returned to see Dr. Ferguson and received a new order to resume PT. pt states that he continues to have L shld pain constant, however is less than at eval. Objective Measurements/Presentation: L shld flex AROM 156, L shld abd 150. pt with decreased scapular ROM as well as pain noted in ant shld. pt presents with tightness at end of AROM. G Codes: n/a Source of G Code Score: n/a - Short Term Goals Goal #1: pt report pain decreased in severity and no longer constant. Goal to be met by: 04/04/18 (revised 03/14/18) Goal #2: Improved ROM L shld flex 160 abd 165 ER 60 Goal to be met by: 04/04/18 (revised 03/14/18) Goal #3: Improve scapular mobility in pain free range. Goal to be met by: 02/08/18 Progress towards Goal:: Met - Correction Goals Goal #1: pt report no pain at rest in L shld, pain not interrupting sleep Goal to be met by: 04/25/18 (revised 03/14/18) Goal #2: pt independent with HEP, to continue with program after dc Goal to be met by: 04/25/18 (revised 03/14/18) Goal #3: Improved ROM L shld flex 175 abd 170, ER 65 Goal to be met by: 04/25/18 (revised 03/14/18) Goal #4: pt report improved ability to perform normal tasks with less pain Goal to be met by: 04/25/18 (revised 03/14/18) - Assessment Assessment of Improvement/Progress: pt has progressed with increased ROM as well as decreased pain and increased strength. pt has met several previous goals. Feel pt would continue to benefit from skilled PT for therex for strengthening, stretching as well as modalities to improve ROM and decrease pain. Summary: Patient has made progress towards goals., Patient demonstrates potential to gain increased function with therapy - Plan Plan: Continue Plan of Care Comments: new order received Frequency: 2-3x a week Duration: 6 weeks PLAN OF CARE EXPIRES ON:: 04/25/18 ORDER # VISITS AND/OR THROUGH DATE: 04/25/18
--- NOTE | 2018-03-16 13:36 | RS.OPPTDN ---
Subjective Date of Note: 03/14/18 Visit #: 11 Date of Evaluation: 01/25/18 Payer Source: Insurance Treatment Diagnosis: L shld impingement with tight Posterior capsule, scapular dyskinesis Current Subjective/complaints:: Reports progress with reduction in left shoulder pain intensity. *Precautions: pt with decreased sensation L side Pain Assessment - Pain Description Pain Location: Left shoulder joint Other Comments regarding Pain:: Does not rate on 0/10 scale. Does report pain intensity is less and he is able to perform more activities without aggravating symptoms. - Treatment Modality: US with ES (Comb.) Parameters/Method Applied: [id number] with US at 1.5w/cm2 and Estim at 9-11p.v. to the left shoulder with focus at anterior joint, prior to MT and ice massage. Patient Position: Supine - Heat/Cryotherapy Treatment: Cryotherapy (Ended with 5mins ice massage to the left anterior shoulder joint at the biceps tendons. Ptaient in supine. ) Interventions - Exercise/Activities/Manual Therapy Exercises/Activities: PROM and end-range stretching of the left shoulder. AAROM of the left shoulder. Isometric shoulder flex, ext, add, abd, IR, and ER. Total minutes of Exercise: 5mins Manual Therapy: [id number] Friction massage to the left shoulder biceps tendon and passive stretch. Mobilization of the left shoulder joint. Trigger point release at the infraspinatus. Distraction of the shoulder joint. Total minutes of Manual Therapy: 15mins HOME EXERCISE PROGRAM: pt given written HEP including stretch for post. capsule , scapular retraction, shld shrugs, pendulum, wall angels. Doorway stretch, 3 postion and isometric bilateral shoulder ext with scap retraction. IR stretch with towel behind back. - Charges Timed Code Treatment Minutes: 35mins Total Treatment Time: 45mins Procedures billed for this date of service:: USCOM, MT, CP Assessment: Patient responding to treatment with reports of reduction in pain intensity. Patient Education: Body/Joint mechanics, Home Exercise Program, Home Safety Patient demonstrates compliance with HEP?: Yes Short Term Goals Goal #1: pt report pain decreased in severity and no longer constant. Goal to be met by: 04/04/18 ( revised 03/14/18) Progress towards Goal:: Progressing Goal #2: Improved ROM L shld flex 160 abd 165 ER 60 Goal to be met by: 04/04/18 ( revised 03/14/18) Progress towards Goal:: Progressing Goal #3: Improved scapular mobility in pain free range. Goal to be met by: 02/08/18 Progress towards Goal:: Met Alf Goals Goal #1: pt report no pain at rest in L shld, pain not interrupting sleep Goal to be met by: 04/25/18 (revised 03/14/18) Progress towards goal: Progressing Goal #2: pt independent with HEP, to continue with program after dc Goal to be met by: 04/25/18 (revised 03/14/18) Progress towards goal: Progressing Goal #3: Improved ROM L shld flex 175 abd 170, ER 65 Goal to be met by: 04/25/18 (revised 03/14/18) Progress towards goal: Progressing Goal #4: pt report improved ability to perform household tasks with less pain Goal to be met by: 04/25/18 (revised 03/14/18) Progress towards goal: Progressing Plan PLAN OF CARE EXPIRES ON:: 04/25/18 ORDER # VISITS AND/OR THROUGH DATE: 04/25/18 PLAN: Continue modalities, manual therapy, and exercise to reduce pain and increase functional use of the left UE.
--- NOTE | 2018-03-16 16:08 | RS.OPPTDN ---
Subjective Date of Note: 03/16/18 Visit #: 12 Date of Evaluation: 01/25/18 Payer Source: Insurance Treatment Diagnosis: L shld impingement with tight Posterior capsule, scapular dyskinesis Current Subjective/complaints:: Patient reports treatment last session seemed to get to the area of problem. States he was sore following the increased friction massage but feels we are on track with what he needs. *Precautions: pt with decreased sensation L side Pain Assessment - Pain Description Pain Location: Left shoulder Pain Description: Dull, Aching Other Comments regarding Pain:: Patient will not rate pain on 1-10 scale but reports pain has reduced from sharp to a dull ache. - Treatment Modality: US with ES (Comb.) Parameters/Method Applied: [id number] US at 1.5w/cm2 and Estim at 10-11p.v. to the left shoulder with focus on aterior joint. Patient Position: Supine - Heat/Cryotherapy Treatment: Cryotherapy (x7mins ice massage to the left shoulder joint and along the upper biceps to end session. Patient in supine. ) Interventions - Exercise/Activities/Manual Therapy Exercises/Activities: PROM and end-range stretching of the left shoulder. AAROM of the left shoulder. Isometric shoulder flex, ext, add, abd, IR, and ER. Total minutes of Exercise: 5mins Manual Therapy: x5mins Friction massage to the left shoulder biceps tendon and passive stretch. Mobilization of the left shoulder joint. Trigger point release at the infraspinatus. Distraction of the shoulder joint. Total minutes of Manual Therapy: 20mins HOME EXERCISE PROGRAM: pt given written HEP including stretch for post. capsule , scapular retraction, shld shrugs, pendulum, wall angels. Doorway stretch, 3 postion and isometric bilateral shoulder ext with scap retraction. IR stretch with towel behind back. - Charges Timed Code Treatment Minutes: 35mins Total Treatment Time: 45mins Procedures billed for this date of service:: COM, MT, CP Assessment: Patient responding to treatment and reporting improvement in pain. Patient Education: Body/Joint mechanics, Home Exercise Program Patient demonstrates compliance with HEP?: Yes Short Term Goals Goal #1: pt report pain decreased in severity and no longer constant. Goal to be met by: 04/04/18 ( revised 03/14/18) Progress towards Goal:: Progressing Goal #2: Improved ROM L shld flex 160 abd 165 ER 60 Goal to be met by: 04/04/18 ( revised 03/14/18) Progress towards Goal:: Progressing Goal #3: Improved scapular mobility in pain free range. Goal to be met by: 02/08/18 Progress towards Goal:: Met [employer] Artillery Operations Specialist Goals Goal #1: pt report no pain at rest in L shld, pain not interrupting sleep Goal to be met by: 04/25/18 (revised 03/14/18) Progress towards goal: Progressing Goal #2: pt independent with HEP, to continue with program after dc Goal to be met by: 04/25/18 (revised 03/14/18) Progress towards goal: Progressing Goal #3: Improved ROM L shld flex 175 abd 170, ER 65 Goal to be met by: 04/25/18 (revised 03/14/18) Progress towards goal: Progressing Goal #4: pt report improved ability to perform household tasks with less pain Goal to be met by: 04/25/18 (revised 03/14/18) Progress towards goal: Progressing Plan PLAN OF CARE EXPIRES ON:: 04/25/18 ORDER # VISITS AND/OR THROUGH DATE: 04/25/18 PLAN: Continue modalities, manual therapy and exercise to reduce pain and increase functional use of the left UE.
--- NOTE | 2018-03-21 14:23 | RS.OPPTDN ---
Subjective Date of Note: 03/20/18 Visit #: 13 Date of Evaluation: 01/25/18 Payer Source: Insurance Treatment Diagnosis: L shld impingement with tight Posterior capsule, scapular dyskinesis Current Subjective/complaints:: Patient reports last treatment seems to have helped. He reports soreness at the anterior shoulder joint where he received friction massage, but feels overall pain is less intense. States he is continuing to stretch the left shoulder frequently. *Precautions: pt with decreased sensation L side Pain Assessment - Pain Description Pain Location: left shoulder Other Comments regarding Pain:: Does not rate on 0-10 scale but reports improvement in pain intensity. - Treatment Modality: US with ES (Comb.) Parameters/Method Applied: [id number] with US at 1.5w/cm2 and Estim at 10p.v. to the anterior left shoulder joint prior to MT. Patient Position: Sitting - Heat/Cryotherapy Treatment: Cryotherapy (x5mins ice massage to the left should. ) Interventions - Exercise/Activities/Manual Therapy Exercises/Activities: PROM and end-range stretching of the left shoulder. AAROM of the left shoulder. Isometric shoulder flex, ext, add, abd, IR, and ER. Total minutes of Exercise: 10mins Manual Therapy: [id number] Friction massage to the left shoulder biceps tendon and passive stretch. Mobilization of the left shoulder joint. Distraction of the shoulder joint. Total minutes of Manual Therapy: 10mins HOME EXERCISE PROGRAM: pt given written HEP including stretch for post. capsule , scapular retraction, shld shrugs, pendulum, wall angels. Doorway stretch, 3 postion and isometric bilateral shoulder ext with scap retraction. IR stretch with towel behind back. - Charges Timed Code Treatment Minutes: 35mins Total Treatment Time: 40mins Procedures billed for this date of service:: USCOM, MT, CP Assessment: Patient reporting reduction in pain and increase in stretching at home. Patient demonstrates compliance with HEP?: Yes Short Term Goals Goal #1: pt report pain decreased in severity and no longer constant. Goal to be met by: 04/04/18 ( revised 03/14/18) Progress towards Goal:: Progressing Goal #2: Improved ROM L shld flex 160 abd 165 ER 60 Goal to be met by: 04/04/18 ( revised 03/14/18) Progress towards Goal:: Progressing Goal #3: Improved scapular mobility in pain free range. Goal to be met by: 02/08/18 Progress towards Goal:: Met Nail Tech Goals Goal #1: pt report no pain at rest in L shld, pain not interrupting sleep Goal to be met by: 04/25/18 (revised 03/14/18) Progress towards goal: Progressing Goal #2: pt independent with HEP, to continue with program after dc Goal to be met by: 04/25/18 (revised 03/14/18) Progress towards goal: Progressing Goal #3: Improved ROM L shld flex 175 abd 170, ER 65 Goal to be met by: 04/25/18 (revised 03/14/18) Progress towards goal: Progressing Goal #4: pt report improved ability to perform household tasks with less pain Goal to be met by: 04/25/18 (revised 03/14/18) Progress towards goal: Progressing Plan PLAN OF CARE EXPIRES ON:: 04/25/18 ORDER # VISITS AND/OR THROUGH DATE: 04/25/18 PLAN: Continue modalities and progress exercise to reduce pain and increase functional use of the left UE.
== END 2018-03-20 23:59 ==
PROVIDERS: ATTEND Orthopaedic Surgery
DX: M75.42 Impingement syndrome of left shoulder (principal); M25.512 Pain in left shoulder; G25.89 Other specified extrapyramidal and movement disorders; M62.81 Muscle weakness (generalized)

== ENCOUNTER 2018-04-07 14:00 | Outpatient (RCR) ==
--- NOTE | 2018-03-23 08:34 | RS.OPPTDN ---
Subjective Date of Note: 03/22/18 Visit #: 14 Date of Evaluation: 01/25/18 Payer Source: Insurance Treatment Diagnosis: L shld impingement with tight Posterior capsule, scapular dyskinesis Current Subjective/complaints:: Patient reports consistent improvement with ROM this week, including horizontal abduction with doorway stretching. *Precautions: pt with decreased sensation L side Pain Assessment - Pain Description Pain Location: Left shoulder joint Current Pain Intensity: mild to mod Other Comments regarding Pain:: Patient continues to avoid rating pain on 0-10 scale - Treatment Modality: US with ES (Comb.) Parameters/Method Applied: [id number] US at 1.5w/cm2 and Estim 9p.v. to the left shoulder with focus on anterior joint. Patient Position: Supine - Heat/Cryotherapy Treatment: Cryotherapy (x7mins ice massage to the left shoulder joint, focus on anterior joint and superior joint line. Patient in supine. ) Interventions - Exercise/Activities/Manual Therapy Exercises/Activities: PROM and end-range stretching of the left shoulder. AAROM of the left shoulder. Isometric shoulder flex, ext, add, abd, IR, and ER. Total minutes of Exercise: 5mins Manual Therapy: Friction massage to the left shoulder biceps tendon and passive stretch. Mobilization of the left shoulder joint. Trigger point release at the infraspinatus. Total minutes of Manual Therapy: 15mins HOME EXERCISE PROGRAM: pt given written HEP including stretch for post. capsule , scapular retraction, shld shrugs, pendulum, wall angels. Doorway stretch, 3 postion and isometric bilateral shoulder ext with scap retraction. IR stretch with towel behind back. - Charges Timed Code Treatment Minutes: 37mins Total Treatment Time: 40mins Procedures billed for this date of service:: USCOM, MT, CP Assessment: Patient reporting consistent progress with mobility of the left shoulder. Patient demonstrates compliance with HEP?: Yes Short Term Goals Goal #1: pt report pain decreased in severity and no longer constant. Goal to be met by: 04/04/18 ( revised 03/14/18) Progress towards Goal:: Progressing Goal #2: Improved ROM L shld flex 160 abd 165 ER 60 Goal to be met by: 04/04/18 ( revised 03/14/18) Progress towards Goal:: Progressing Goal #3: Improved scapular mobility in pain free range. Goal to be met by: 02/08/18 Progress towards Goal:: Met Half-Way Goals Goal #1: pt report no pain at rest in L shld, pain not interrupting sleep Goal to be met by: 04/25/18 (revised 03/14/18) Progress towards goal: Progressing Goal #2: pt independent with HEP, to continue with program after dc Goal to be met by: 04/25/18 (revised 03/14/18) Progress towards goal: Progressing Goal #3: Improved ROM L shld flex 175 abd 170, ER 65 Goal to be met by: 04/25/18 (revised 03/14/18) Progress towards goal: Progressing Goal #4: pt report improved ability to perform household tasks with less pain Goal to be met by: 04/25/18 (revised 03/14/18) Progress towards goal: Progressing Plan PLAN OF CARE EXPIRES ON:: 04/25/18 ORDER # VISITS AND/OR THROUGH DATE: 04/25/18 PLAN: Continue modalities, manual therapy, and progressive exercise to reduce pain and increase functional use of the left UE.
--- NOTE | 2018-03-24 15:50 | RS.OPPTDN ---
Subjective Date of Note: 03/24/18 Visit #: 15 Date of Evaluation: 01/25/18 Payer Source: Insurance Treatment Diagnosis: L shld impingement with tight Posterior capsule, scapular dyskinesis Current Subjective/complaints:: Patient reports he is seeing progress with active reaching with the left UE. *Precautions: pt with decreased sensation L side Pain Assessment - Pain Description Pain Location: Left shoulder Other Comments regarding Pain:: Does not rate on 0-10 scale, but reports consistent improvement. - Treatment Modality: US with ES (Comb.) Parameters/Method Applied: [id number] total. 10mins US at 1.5w/cm2 and Estim 9- 10p.v. to the anterior and posterior joint, and then 2mins on pulsed to the anterior shoulder joint over biceps tendon. Patient Position: Supine - Heat/Cryotherapy Treatment: Cryotherapy (x8mins total. 5mins ice massage following friction massage, then 3mins ice massage following stretching. ) Interventions - Exercise/Activities/Manual Therapy Exercises/Activities: PROM and end-range stretching of the left shoulder. AAROM of the left shoulder. Isometric shoulder flex, ext, add, abd, IR, and ER. Total minutes of Exercise: 5mins Manual Therapy: Friction massage to the left shoulder biceps tendon and passive stretch. Mobilization of the left shoulder joint. Trigger point release at the infraspinatus. Total minutes of Manual Therapy: 15mins HOME EXERCISE PROGRAM: pt given written HEP including stretch for post. capsule , scapular retraction, shld shrugs, pendulum, wall angels. Doorway stretch, 3 postion and isometric bilateral shoulder ext with scap retraction. IR stretch with towel behind back. - Objective Findings Observations,measurements,etc.: Patient demos left shoulder active flexion to 165 degrees with ER slightly limited to 55-57 degrees. - Charges Timed Code Treatment Minutes: 40mins Total Treatment Time: 45mins Procedures billed for this date of service:: USCOM, MT, CP Assessment: Patient progressing well with reports of improvement in pain and in ability to perform functional reaching. Patient has now partially met ROM goal. Patient Education: Body/Joint mechanics, Home Exercise Program, Activity Modification Patient demonstrates compliance with HEP?: Yes Short Term Goals Goal #1: pt report pain decreased in severity and no longer constant. Goal to be met by: 04/04/18 ( revised 03/14/18) Progress towards Goal:: Partially Met Goal #2: Improved ROM L shld flex 160 abd 165 ER 60 Goal to be met by: 04/04/18 ( revised 03/14/18) Progress towards Goal:: Partially Met Goal #3: Improved scapular mobility in pain free range. Goal to be met by: 02/08/18 Progress towards Goal:: Met Custodial Goals Goal #1: pt report no pain at rest in L shld, pain not interrupting sleep Goal to be met by: 04/25/18 (revised 03/14/18) Progress towards goal: Partially Met Goal #2: pt independent with HEP, to continue with program after dc Goal to be met by: 04/25/18 (revised 03/14/18) Progress towards goal: Partially Met Goal #3: Improved ROM L shld flex 175 abd 170, ER 65 Goal to be met by: 04/25/18 (revised 03/14/18) Progress towards goal: Progressing Goal #4: pt report improved ability to perform household tasks with less pain Goal to be met by: 04/25/18 (revised 03/14/18) Progress towards goal: Met Plan PLAN OF CARE EXPIRES ON:: 04/25/18 ORDER # VISITS AND/OR THROUGH DATE: 04/25/18 PLAN: Continue modalities, manual therapy, and exercise to reduce pain and increase functional use of the left UE.
--- NOTE | 2018-03-27 16:04 | RS.OPPTDN ---
Subjective Date of Note: 03/27/18 Visit #: 16 Date of Evaluation: 01/25/18 Payer Source: Insurance Treatment Diagnosis: L shld impingement with tight Posterior capsule, scapular dyskinesis Current Subjective/complaints:: Patient reports he continues to have constant pain in the left shoulder, but intensity continues to improve. He reports increased use of the left UE with light activities at home. *Precautions: pt with decreased sensation L side Pain Assessment - Pain Description Pain Location: Left shoulder Other Comments regarding Pain:: Patient will not rate on 0-10 scale - Treatment Modality: US with ES (Comb.) Parameters/Method Applied: [id number] total. 7mins US @ 1.5w/cm2 and Estim 11- 13p.v. and 5mins pulsed US to the left shoulder joint with focus on anterior joint/biceps tendon. Patient Position: Supine - Heat/Cryotherapy Treatment: Cryotherapy (x5mins ice massage to the left shoulder focus on anterior joint. ) Interventions - Exercise/Activities/Manual Therapy Exercises/Activities: PROM and end-range stretching of the left shoulder. AAROM of the left shoulder. Isometric shoulder flex, ext, add, abd, IR, and ER. Focus on multiple sets of 5 reps of IR and ER with UE at side and then shoulder at 90 degrees abduction. Standing in doorway for stretching, isometric IR and ER in different positions. Total minutes of Exercise: 12mins Manual Therapy: Friction massage to the left shoulder biceps tendon and passive stretch. Mobilization of the left shoulder joint. Trigger point release at the infraspinatus. Total minutes of Manual Therapy: 15mins HOME EXERCISE PROGRAM: pt given written HEP including stretch for post. capsule , scapular retraction, shld shrugs, pendulum, wall angels. Doorway stretch, 3 postion and isometric bilateral shoulder ext with scap retraction. IR stretch with towel behind back. Isometric shoulder IR and ER in doorway with arm at side and at 90 degrees abduction. - Charges Timed Code Treatment Minutes: 44mins Total Treatment Time: 45mins Procedures billed for this date of service:: USCOM, MT, EX Assessment: Patient progressing with reports of pain reduction, functional use of left UE, and demos progress with exercises. Patient Education: Body/Joint mechanics, Home Exercise Program Patient demonstrates compliance with HEP?: Yes Short Term Goals Goal #1: pt report pain decreased in severity and no longer constant. Goal to be met by: 04/04/18 ( revised 03/14/18) Progress towards Goal:: Partially Met Goal #2: Improved ROM L shld flex 160 abd 165 ER 60 Goal to be met by: 04/04/18 ( revised 03/14/18) Progress towards Goal:: Partially Met Goal #3: Improved scapular mobility in pain free range. Goal to be met by: 02/08/18 Progress towards Goal:: Met Physician President Goals Goal #1: pt report no pain at rest in L shld, pain not interrupting sleep Goal to be met by: 04/25/18 (revised 03/14/18) Progress towards goal: Partially Met Goal #2: pt independent with HEP, to continue with program after dc Goal to be met by: 04/25/18 (revised 03/14/18) Progress towards goal: Partially Met Goal #3: Improved ROM L shld flex 175 abd 170, ER 65 Goal to be met by: 04/25/18 (revised 03/14/18) Progress towards goal: Progressing Goal #4: pt report improved ability to perform household tasks with less pain Goal to be met by: 04/25/18 (revised 03/14/18) Progress towards goal: Met Plan PLAN OF CARE EXPIRES ON:: 04/25/18 ORDER # VISITS AND/OR THROUGH DATE: 04/25/18 PLAN: Continue modalities and progressive exercise to reduce pain and increase functional use of the left UE.
--- NOTE | 2018-03-29 16:03 | RS.OPPTDN ---
Subjective Date of Note: 03/29/18 Visit #: 17 Date of Evaluation: 01/25/18 Payer Source: Insurance Treatment Diagnosis: L shld impingement with tight Posterior capsule, scapular dyskinesis Current Subjective/complaints:: Patient reports he continues to see progress with functional use of the left UE. He reports continued pain but with less intensity. 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 *Precautions: pt with decreased sensation L side Pain Assessment - Pain Description Pain Location: Left shoulder - Treatment Modality: US with ES (Comb.) Parameters/Method Applied: [id number] US at 1.5w/cm2 and Estim to 13p.v. to the left shoulder joint, then 5mins with US on pulsed setting to focus on biceps tendon. Patient Position: Supine - Heat/Cryotherapy Treatment: Cryotherapy (x5mins ice massage to the left anterior shoulder joint to end treatment session. Patient supine. ) Interventions - Exercise/Activities/Manual Therapy Exercises/Activities: PROM and end-range stretching of the left shoulder. AAROM of the left shoulder. Isometric shoulder flex, ext, add, abd, IR, and ER. Focus on multiple sets of 5 reps of IR and ER with UE at side and then shoulder at 90 degrees abduction. Red theraband for IR and ER at side and with shouulder at 90 degrees abduction, multiple sets of 5reps. Total minutes of Exercise: 15mins Manual Therapy: Friction massage to the left shoulder biceps tendon and passive stretch. Mobilization of the left shoulder joint. Total minutes of Manual Therapy: 15mins HOME EXERCISE PROGRAM: pt given written HEP including stretch for post. capsule , scapular retraction, shld shrugs, pendulum, wall angels. Doorway stretch, 3 postion and isometric bilateral shoulder ext with scap retraction. IR stretch with towel behind back. Isometric shoulder IR and ER in doorway with arm at side and at 90 degrees abduction. - Charges Timed Code Treatment Minutes: 50mins Total Treatment Time: 50mins Procedures billed for this date of service:: EMELY, CLARISSA, EX Assessment: Patient progressing with reports of increased use of the lefft UE with daily activities. Patient has met STG for ROM. Patient Education: Home Exercise Program Patient demonstrates compliance with HEP?: Yes Short Term Goals Goal #1: pt report pain decreased in severity and no longer constant. Goal to be met by: 04/04/18 ( revised 03/14/18) Progress towards Goal:: Partially Met Goal #2: Improved ROM L shld flex 160 abd 165 ER 60 Goal to be met by: 04/04/18 ( revised 03/14/18) Progress towards Goal:: Met Comments:: Left shld flex 160, abd 165, ER 70 Goal #3: Improved scapular mobility in pain free range. Goal to be met by: 02/08/18 Progress towards Goal:: Met Mcfp Goals Goal #1: pt report no pain at rest in L shld, pain not interrupting sleep Goal to be met by: 04/25/18 (revised 03/14/18) Progress towards goal: Partially Met Goal #2: pt independent with HEP, to continue with program after dc Goal to be met by: 04/25/18 (revised 03/14/18) Progress towards goal: Partially Met Goal #3: Improved ROM L shld flex 175 abd 170, ER 65 Goal to be met by: 04/25/18 (revised 03/14/18) Progress towards goal: Partially Met Goal #4: pt report improved ability to perform household tasks with less pain Goal to be met by: 04/25/18 (revised 03/14/18) Progress towards goal: Met Plan PLAN OF CARE EXPIRES ON:: 04/25/18 ORDER # VISITS AND/OR THROUGH DATE: 04/25/18 PLAN: Continue modalities and manual therapy, and progress strengthening exericises.
--- NOTE | 2018-03-31 16:03 | RS.OPPTDN ---
Subjective Date of Note: 03/31/18 Visit #: 18 Date of Evaluation: 01/25/18 Payer Source: Insurance Treatment Diagnosis: L shld impingement with tight Posterior capsule, scapular dyskinesis Current Subjective/complaints:: Patient reports improvement in ability to perform reaching activities at home. States he has a constant dull ache, but no longe has sharp pain in the left shoulder. *Precautions: pt with decreased sensation L side - Treatment Modality: US with ES (Comb.) Parameters/Method Applied: [id number] total. 10mins US at 1.5w/cm2 and Estim at 10p.v., then US changed to pulsed to focus on the left proximal biceps. Patient Position: Supine - Heat/Cryotherapy Treatment: Cryotherapy (x5mins ice massage to the left anterior shoulder joint during a break in stretching. ) Interventions - Exercise/Activities/Manual Therapy Exercises/Activities: PROM and end-range stretching of the left shoulder. AAROM of the left shoulder. Isometric shoulder flex, ext, add, abd, IR, and ER. Focus on multiple sets of 5 reps of IR and ER with UE at side and then shoulder at 90 degrees abduction. Total minutes of Exercise: 15mins Manual Therapy: Friction massage to the left shoulder biceps tendon and passive stretch. Mobilization of the left shoulder joint. Total minutes of Manual Therapy: 14mins HOME EXERCISE PROGRAM: pt given written HEP including stretch for post. capsule , scapular retraction, shld shrugs, pendulum, wall angels. Doorway stretch, 3 postion and isometric bilateral shoulder ext with scap retraction. IR stretch with towel behind back. Isometric shoulder IR and ER in doorway with arm at side and at 90 degrees abduction. - Charges Timed Code Treatment Minutes: 34mins Total Treatment Time: 54mins Procedures billed for this date of service:: USCOM, EX, MT Assessment: Patient progressing with ROM, reports of pain reduction, and increase in functional use of the left UE with ADL's. Patient Education: Body/Joint mechanics, Home Exercise Program Patient demonstrates compliance with HEP?: Yes Short Term Goals Goal #1: pt report pain decreased in severity and no longer constant. Goal to be met by: 04/04/18 ( revised 03/14/18) Progress towards Goal:: Partially Met Goal #2: Improved ROM L shld flex 160 abd 165 ER 60 Goal to be met by: 04/04/18 ( revised 03/14/18) Progress towards Goal:: Met Goal #3: Improved scapular mobility in pain free range. Goal to be met by: 02/08/18 Progress towards Goal:: Met Intermediate Goals Goal #1: pt report no pain at rest in L shld, pain not interrupting sleep Goal to be met by: 04/25/18 (revised 03/14/18) Progress towards goal: Partially Met Goal #2: pt independent with HEP, to continue with program after dc Goal to be met by: 04/25/18 (revised 03/14/18) Progress towards goal: Partially Met Goal #3: Improved ROM L shld flex 175 abd 170, ER 65 Goal to be met by: 04/25/18 (revised 03/14/18) Progress towards goal: Partially Met Goal #4: pt report improved ability to perform household tasks with less pain Goal to be met by: 04/25/18 (revised 03/14/18) Progress towards goal: Met Plan PLAN OF CARE EXPIRES ON:: 04/25/18 ORDER # VISITS AND/OR THROUGH DATE: 04/25/18 PLAN: Continue modalities, manual therapy, and progress exercise to reduce pain and increase functional use of the left UE.
--- NOTE | 2018-04-03 15:54 | RS.OPPTDN ---
Subjective Date of Note: 04/03/18 Visit #: 19 Date of Evaluation: 01/25/18 Payer Source: Insurance Treatment Diagnosis: L shld impingement with tight Posterior capsule, scapular dyskinesis Current Subjective/complaints:: Patient reports a dull ache in the left shoulder. Reports he no longer has sharp pain. He is reaching better and lifting more objects with daily activities. *Precautions: pt with decreased sensation L side Pain Assessment - Pain Description Pain Location: Left shoulder joint Pain Description: Dull - Treatment Modality: US with ES (Comb.) Parameters/Method Applied: [id number] total. US at 1.5w/cm2 and Estim 10p.v. with last 4mins pulsed US setting to the left shoulder joint. Patient Position: Supine Interventions - Exercise/Activities/Manual Therapy Exercises/Activities: PROM and end-range stretching of the left shoulder. AAROM of the left shoulder. Isometric shoulder flex, ext, add, abd, IR, and ER. Focus on multiple sets of 5 reps of IR and ER with UE at side and then shoulder at 90 degrees abduction. Ended with additional stretching. Total minutes of Exercise: 15mins Manual Therapy: Friction massage to the left shoulder biceps tendon and passive stretch. Mobilization of the left shoulder joint. Total minutes of Manual Therapy: 14mins HOME EXERCISE PROGRAM: pt given written HEP including stretch for post. capsule , scapular retraction, shld shrugs, pendulum, wall angels. Doorway stretch, 3 postion and isometric bilateral shoulder ext with scap retraction. IR stretch with towel behind back. Isometric shoulder IR and ER in doorway with arm at side and at 90 degrees abduction. - Objective Findings Observations,measurements,etc.: Active left shoulder flexion to 162 degrees and abduction to 174 degrees. - Charges Timed Code Treatment Minutes: 43mins Total Treatment Time: 45mins Procedures billed for this date of service:: USCOM, MT, EX Assessment: Patient continues to report improvement in pain and functional activities. He demos an increase in AROM of the left shoulder. Patient Education: Education of diagnosis, Body/Joint mechanics, Home Exercise Program Patient demonstrates compliance with HEP?: Yes Short Term Goals Goal #1: pt report pain decreased in severity and no longer constant. Goal to be met by: 04/04/18 ( revised 03/14/18) Progress towards Goal:: Partially Met Goal #2: Improved ROM L shld flex 160 abd 165 ER 60 Goal to be met by: 04/04/18 ( revised 03/14/18) Progress towards Goal:: Met Goal #3: Improved scapular mobility in pain free range. Goal to be met by: 02/08/18 Progress towards Goal:: Met Senior Living Goals Goal #1: pt report no pain at rest in L shld, pain not interrupting sleep Goal to be met by: 04/25/18 (revised 03/14/18) Progress towards goal: Partially Met Goal #2: pt independent with HEP, to continue with program after dc Goal to be met by: 04/25/18 (revised 03/14/18) Progress towards goal: Partially Met Goal #3: Improved ROM L shld flex 175 abd 170, ER 65 Goal to be met by: 04/25/18 (revised 03/14/18) Progress towards goal: Partially Met Goal #4: pt report improved ability to perform household tasks with less pain Goal to be met by: 04/25/18 (revised 03/14/18) Progress towards goal: Met Plan PLAN OF CARE EXPIRES ON:: 04/25/18 ORDER # VISITS AND/OR THROUGH DATE: 04/25/18 PLAN: Continue modalities and manual therapy to reduce pain and increase functional use of the left UE.
--- NOTE | 2018-04-07 08:47 | RS.OPPTDN ---
Subjective Date of Note: 04/05/18 Visit #: 20 Date of Evaluation: 01/25/18 Payer Source: Insurance Treatment Diagnosis: L shld impingement with tight Posterior capsule, scapular dyskinesis Current Subjective/complaints:: Patient reports he feels we have made good progress today. Reports left shoulder pain increases with coughing, but only dull at rest. Reports pain in the superior left shoulder joint is recreated with manual pressue and trigger point release to the left scalenes. *Precautions: pt with decreased sensation L side Pain Assessment - Pain Description Pain Location: Left shoulder and left neck Other Comments regarding Pain:: Does not rate on 0-10 scale - Treatment Modality: US with ES (Comb.) Parameters/Method Applied: [id number] with US at 1.5w/cm2 and Estim 9p.v. to the left shoulder joint, then pulsed US and Estim to the left lateral neck to focus on scalenes. Patient Position: Supine Interventions - Exercise/Activities/Manual Therapy Exercises/Activities: PROM and end-range stretching of the left shoulder. AAROM of the left shoulder. Isometric shoulder flex, ext, add, abd, IR, and ER. Scalene stretching in sitting and standing. Patient education on self stretching for HEP. Patient given copies of new exercises. Total minutes of Exercise: 14mins Manual Therapy: Friction massage to the left shoulder biceps tendon and passive stretch. Manual trigger point release at left traps and focus at the scalenes. Total minutes of Manual Therapy: 18mins HOME EXERCISE PROGRAM: Posterior capsule stretching, scapular retraction, shld shrugs, pendulum, wall angels. Doorway stretch, 3 postion and isometric bilateral shoulder ext with scap retraction. IR stretch with towel behind back. Isometric shoulder IR and ER in doorway with arm at side and at 90 degrees abduction. Scalene stretch in standing and sitting. - Charges Timed Code Treatment Minutes: 46mins Total Treatment Time: 50mins Procedures billed for this date of service:: EMELY, CLARISSA, EX Assessment: Patient continues to respond well to treatment. He continues to report an increase in functional use of the left UE. He states he would like to focus on scalenes to further reduce pain and increase functional use of the left UE. Patient Education: Home Exercise Program Comments: Extensive patient educcation of the upper body and cervical mechanics. Patient demonstrates compliance with HEP?: Yes Short Term Goals Goal #1: pt report pain decreased in severity and no longer constant. Goal to be met by: 04/04/18 ( revised 03/14/18) Progress towards Goal:: Partially Met Goal #2: Improved ROM L shld flex 160 abd 165 ER 60 Goal to be met by: 04/04/18 ( revised 03/14/18) Progress towards Goal:: Met Goal #3: Improved scapular mobility in pain free range. Goal to be met by: 02/08/18 Progress towards Goal:: Met Procurement Clerk Goals Goal #1: pt report no pain at rest in L shld, pain not interrupting sleep Goal to be met by: 04/25/18 (revised 03/14/18) Progress towards goal: Partially Met Goal #2: pt independent with HEP, to continue with program after dc Goal to be met by: 04/25/18 (revised 03/14/18) Progress towards goal: Partially Met Goal #3: Improved ROM L shld flex 175 abd 170, ER 65 Goal to be met by: 04/25/18 (revised 03/14/18) Progress towards goal: Partially Met Goal #4: pt report improved ability to perform household tasks with less pain Goal to be met by: 04/25/18 (revised 03/14/18) Progress towards goal: Met Plan PLAN OF CARE EXPIRES ON:: 04/25/18 ORDER # VISITS AND/OR THROUGH DATE: 04/25/18 PLAN: Continue this week and patient to see physician for follow-up. Patient hopefully he will be sent for further testing.
--- NOTE | 2018-04-07 16:23 | RS.OPPTDN ---
Subjective Date of Note: 04/07/18 Visit #: 21 Date of Evaluation: 01/25/18 Payer Source: Insurance Treatment Diagnosis: L shld impingement with tight Posterior capsule, scapular dyskinesis Current Subjective/complaints:: Patient reports left shoulder pain and ROM have both improved with treatment. He reports his neck pain seems to be giving him more problems at this time. Patient states he will continue HEP as he has completed all current orders. *Precautions: pt with decreased sensation L side Pain Assessment - Pain Description Pain Location: Left shoulder, neck - Treatment Modality: US with ES (Comb.) Parameters/Method Applied: [id number] US at 1.5w/cm and Estim 9p.v. to the left shoulder joint. Patient Position: Supine Interventions - Exercise/Activities/Manual Therapy Exercises/Activities: PROM and end-range stretching of the left shoulder. AAROM of the left shoulder. Isometric shoulder flex, ext, add, abd, IR, and ER. Scalene stretching in sitting and standing. Scapular retraction. Total minutes of Exercise: 17mins Manual Therapy: Friction massage to the left shoulder biceps tendon and passive stretch. Manual trigger point release at left traps and left scalenes. Total minutes of Manual Therapy: 18mins HOME EXERCISE PROGRAM: Posterior capsule stretching, scapular retraction, shld shrugs, pendulum, wall angels. Doorway stretch, 3 postion and isometric bilateral shoulder ext with scap retraction. IR stretch with towel behind back. Isometric shoulder IR and ER in doorway with arm at side and at 90 degrees abduction. Scalene stretch in standing and sitting. - Objective Findings Observations,measurements,etc.: Active left shoulder flexion to approx 165 degrees and abduction to 174 degrees. - Charges Timed Code Treatment Minutes: 45mins Total Treatment Time: 45mins Procedures billed for this date of service:: EMELY, MT, EX Assessment: Patient demos ROM WFL in the left shoulder. He has consistently reported an increase in functional use of the left UE. He will continue HEP following discharge. Patient Education: Home Exercise Program, Education of Plan of Care Patient demonstrates compliance with HEP?: Yes Short Term Goals Goal #1: pt report pain decreased in severity and no longer constant. Goal to be met by: 04/04/18 ( revised 03/14/18) Progress towards Goal:: Partially Met Goal #2: Improved ROM L shld flex 160 abd 165 ER 60 Goal to be met by: 04/04/18 ( revised 03/14/18) Progress towards Goal:: Met Goal #3: Improved scapular mobility in pain free range. Goal to be met by: 02/08/18 Progress towards Goal:: Met Senior Living Goals Goal #1: pt report no pain at rest in L shld, pain not interrupting sleep Goal to be met by: 04/25/18 (revised 03/14/18) Progress towards goal: Partially Met Goal #2: pt independent with HEP, to continue with program after dc Goal to be met by: 04/25/18 (revised 03/14/18) Progress towards goal: Met Goal #3: Improved ROM L shld flex 175 abd 170, ER 65 Goal to be met by: 04/25/18 (revised 03/14/18) Progress towards goal: Partially Met Goal #4: pt report improved ability to perform household tasks with less pain Goal to be met by: 04/25/18 (revised 03/14/18) Progress towards goal: Met Plan PLAN OF CARE EXPIRES ON:: 04/25/18 ORDER # VISITS AND/OR THROUGH DATE: 04/25/18 PLAN: Discharge with HEP as patient has completed all orders.
== END 2018-04-20 23:59 ==
PROVIDERS: ATTEND Orthopaedic Surgery
DX: M75.42 Impingement syndrome of left shoulder (principal); M25.512 Pain in left shoulder; G25.89 Other specified extrapyramidal and movement disorders; M62.81 Muscle weakness (generalized)

== ENCOUNTER 2018-04-20 14:00 | Outpatient (RCR) ==
--- NOTE | 2018-04-12 09:36 | RS.OPPTEV2 ---
Date of Note: 04/11/18 Visit #: 1 Date of Evaluation: 04/11/18 Payer Source: Insurance Surgery Performed?: No Treatment Diagnosis: neck pain History of Condition/Mechanism of Injury:: pt states his shld is doing better. He reports that this cervical pain has been going on for several years and finally got someone to listen. Prior Level of Function.....Patient was independent with: ADL's, Self Care, Work /Vocation, Ambulation/Mobility, Community Integration/Access Functional Limitations: Sleep, Reaching, Pushing, Pulling, Lifting, Carrying, Sitting Current Subjective/complaints:: pt states that he wants this pain to be gone. He states he has been dealing with this for several years. Treatment Side (optional): Left *Precautions: pt with decreased sensation L side Medical History Medical History: CVA/TIA Medical History Comments:: multiple sclerosis Surgical History: Lumbar Spine Smoking Status: Current every day smoker Diagnostic Testing/Imaging:: MRI cervical spine: Deg spondyloarthropathy C5-C6, C6-C7. R post paracentral disc osteophyte C5-C6, L post paracentral disc osteophyte C6-C7. Patient's Goals: get rid of pain in his neck Pain Assessment - Pain Description Pain Location: cervical spine Pain Description: Tightness, Sharp (pt report has sharp pain at times which radiates into LUE), Aching, Chronic Pain Description: pt will not rate pain, states pain is constant worse at times. Functional Outcome Measure Neck Disability Index: 16 (68%) - G Codes & Severity Modifier G Codes & Modifier: n/a Source of G Code score: n/a Observation - Observation Posture: Forward Head, Rounded Shoulders Comments: L shld lower than R Handedness: Right Gait - Gait Pattern General Gait Pattern Observation: Ataxic Gait Gait Comments: pt amb with increased L hip circumduction to clear L foot s/p CVA General Range of Motion: RUE WFL's. LUE shld flex 160. BLE WFL's Muscle Strength: RUE 5/5. LUE shld flex 4/5, elbow flex/ext 4+/5,. RLE 5/5, LLE hip flex 4/5, knee flex/ext 4+/5, ankle Df/PF 4+/5 - ROM Cervical Spine Range of Motion Limitations: Soft Tissue Tightness, Muscle Weakness, Pain Comments: Cervical ROM WFL's, somewhat limited with L cervical rotation with pain. - Strength Cervical Extension: 4 Good Cervical Flexion: 4 Good Cervical Lateral Flexion: 4- Good- Cervical Rotation: 4- Good- - Special Tests Foraminal Distraction: Negative Foraminal Compression: Negative Left, Negative Right Palpation Palpation Findings: Tenderness, Trigger Point Comments:: tenderness L cervical spine, trigger point noted L upper trap and L scalenes Sensation - Sensation Right Upper Extremity: Impaired (n/t R fingers since MS diagnosis) Left Upper Extremity: Impaired (pt with numbness and tingling LUE due to CVA) Right Lower Extremity: Impaired (n/t R foot) Left Lower Extremity: Impaired (n/t L foot) Balance - Sitting Balance Static Sitting Balance: Normal Dynamic Sitting Balance: Normal - Standing Balance Static Standing Balance: Normal Dynamic Standing Balance: Good - Comments Balance Assessment Comments: pt with no LOB with amb, does amb with increased L hip circumduction - Treatment Modality: Ultrasound Parameters/Method Applied: 1.5w/cm2 x 7 mins Treatment Area: L upper trap and scalene Patient Position: Sitting Interventions - Exercise/Activities/Manual Therapy Exercises/Activities: pt performed Upper trap and scalene stretch Manual Therapy: n/a HOME EXERCISE PROGRAM: pt given written HEP including upper trap stretch and scalene stretch - Charges Timed Code Treatment Minutes: 47 Total Treatment Time: 60 Procedures billed for this date of service:: eval med, ultrasound EVALUATION COMPLEXITY LEVEL EVALUATION COMPLEXITY LEVEL: HISTORY: Medium (MS, CVA, cervical spondylopathy), EXAM OF BODY SYSTEMS: Medium (pain, muscle tightness, ROM, strength), CLINICAL PRESENTATION: Medium (evolving), CLINICAL DECISION MAKING: Medium Assessment Assessment: pt presents with L cervical pain with occasional radiculopathy into L UE. pt presents with muscle tightness L upper trap and scalenes. Patient Education: Home Exercise Program, Education of Plan of Care Rehab Potential: Good Short Term Goals Goal #1: pt report that pain is no longer constant Goal to be met by: 04/25/18 Goal #2: Cervical rotation WFL's with no reports of pain. Goal to be met by: 04/25/18 Goal #3: pt independent with initial HEP Goal to be met by: 04/25/18 Table Games Floor Supervisor Goals Goal #1: pt report no radicular pain, cervical spine decreased and intermittent Goal to be met by: 05/09/18 Goal #2: pt independent with HEP, to continue with program after dc Goal to be met by: 05/09/18 Goal #3: pt with improved posture and decreased muscle tightness Goal to be met by: 05/09/18 Goal #4: pt report improved ability to perform normal daily tasks with less pain Goal to be met by: 05/09/18 Plan - Treatment to be Provided Procedures: Therapeutic Exercises, Therapeutic Activity, Manual Therapy, Massage , Patient Education Modalities: Electrical Stimulation, Ultrasound/Phonophoresis, Class IV Laser, Cryotherapy - Treatment Plan Frequency: 2-3x a week Duration: 4 weeks ORDER # VISITS AND/OR THROUGH DATE: 05/09/18
--- NOTE | 2018-04-13 16:16 | RS.OPPTDN ---
Subjective Date of Note: 04/13/18 Visit #: 2 Date of Evaluation: 04/11/18 Payer Source: Insurance Treatment Diagnosis: neck pain Current Subjective/complaints:: Patient reports a slight increase in cervical mobility following treatment today. *Precautions: pt with decreased sensation L side Pain Assessment - Pain Description Pain Location: bilateral neck, upper traps Pain Description: Sharp, Aching Current Pain Intensity: moderate Other Comments regarding Pain:: Does not rate on 0/10 scale - Treatment Modality: US with ES (Comb.) Parameters/Method Applied: [id number] US at 1.5w/cm2 and Estim 6-7p.v. to the left lateral neck at scalenes and along traps. Patient Position: Supine Interventions - Exercise/Activities/Manual Therapy Exercises/Activities: Assisted stretching cervical lateral flexion, lev scap, and anterior chest stretch. Isometric cervical retraction. In sitting, assisted scalene stretch. Reviewed HEP including anterior chest stretch, scalene stretch and postural correction and isometric cervical retraction. Total minutes of Exercise: 20mins Manual Therapy: Myofascial release, trigger point release, and occipital release. Myofascial work focus on the upper traps, SCM, and scalenes. Total minutes of Manual Therapy: 23mins HOME EXERCISE PROGRAM: pt given written HEP including upper trap stretch and scalene stretch - Charges Timed Code Treatment Minutes: 55mins Total Treatment Time: 55mins Procedures billed for this date of service:: USCOM, MTx2, EX Assessment: Patient responding to manual therapy with reports of increased flexibility and reduction in pain. Patient Education: Body/Joint mechanics, Home Exercise Program Patient demonstrates compliance with HEP?: Yes Short Term Goals Goal #1: pt report that pain is no longer constant Goal to be met by: 04/25/18 Progress towards Goal:: Progressing Goal #2: Cervical rotation WFL's with no reports of pain. Goal to be met by: 04/25/18 Goal #3: pt independent with initial HEP Goal to be met by: 04/25/18 Progress towards Goal:: Progressing Prison Goals Goal #1: pt report no radicular pain, cervical spine decreased and intermittent Goal to be met by: 05/09/18 Goal #2: pt independent with HEP, to continue with program after dc Goal to be met by: 05/09/18 Goal #3: pt with improved posture and decreased muscle tightness Goal to be met by: 05/09/18 Goal #4: pt report improved ability to perform normal daily tasks with less pain Goal to be met by: 05/09/18 Plan PLAN OF CARE EXPIRES ON:: 05/09/18 ORDER # VISITS AND/OR THROUGH DATE: 05/09/18 PLAN: Continue modalities and manual therapy to reduce pain and increase functional activity level.
--- NOTE | 2018-04-18 16:02 | RS.OPPTDN ---
Subjective Date of Note: 04/18/18 Visit #: 3 Date of Evaluation: 04/11/18 Payer Source: Insurance Treatment Diagnosis: neck pain Current Subjective/complaints:: Patient reports he has seen improvement in pain. He is able to work on stretching without high level of pain. Reports going on a trip over the weekend and no change in pain. *Precautions: pt with decreased sensation L side - Treatment Modality: US with ES (Comb.) Parameters/Method Applied: [id number] US at 1.5w/cm2 and Estim 6-8 p.v. to the left upper traps, scalenes, and upper cervical paraspinals. Patient Position: Supine Interventions - Exercise/Activities/Manual Therapy Exercises/Activities: Assisted stretching cervical lateral flexion, lev scap, and anterior chest stretch. Isometric cervical retraction. In sitting, assisted scalene stretch. Supine with towel roll at c-spine for postural correction. Isometric cervical retraction. Total minutes of Exercise: 14mins Manual Therapy: Myofascial release, trigger point release, and occipital release. Myofascial work focus on the right upper traps, SCM, and scalenes. Total minutes of Manual Therapy: 22mins HOME EXERCISE PROGRAM: pt given written HEP including upper trap stretch and scalene stretch - Objective Findings Observations,measurements,etc.: Patient demos improved postural alignment. Left shoulder forward protraction is reduced and scapular alignment improved. - Charges Timed Code Treatment Minutes: 48mins Total Treatment Time: 52mins Procedures billed for this date of service:: CLARISSA HAN EX Assessment: Patient reporting a good response to last treatment. Patient Education: Body/Joint mechanics, Home Exercise Program, Home Safety, Activity Modification Comments: Patient education focused on postural correction today. Patient demonstrates compliance with HEP?: Yes Short Term Goals Goal #1: pt report that pain is no longer constant Goal to be met by: 04/25/18 Progress towards Goal:: Met Goal #2: Cervical rotation WFL's with no reports of pain. 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 Goal #1: pt report no radicular pain, cervical spine decreased and intermittent Goal to be met by: 05/09/18 Progress towards goal: Progressing Goal #2: pt independent with HEP, to continue with program after dc Goal to be met by: 05/09/18 Progress towards goal: Progressing Goal #3: pt with improved posture and decreased muscle tightness Goal to be met by: 05/09/18 Progress towards goal: Progressing Goal #4: pt report improved ability to perform normal daily tasks with less pain Goal to be met by: 05/09/18 Plan PLAN OF CARE EXPIRES ON:: 05/09/18 ORDER # VISITS AND/OR THROUGH DATE: 05/09/18 PLAN: Continue modalities, manual therapy, and progressive postural exercise to reduce patients neck pain and radiculopathy.
--- NOTE | 2018-04-20 16:26 | RS.OPPTDN ---
Subjective Date of Note: 04/20/18 Visit #: 4 Date of Evaluation: 04/11/18 Payer Source: Insurance Treatment Diagnosis: neck pain Current Subjective/complaints:: Patient reports muscle soreness at the left neck following MT last session. *Precautions: pt with decreased sensation L side Pain Assessment - Pain Description Pain Location: neck and left UE Other Comments regarding Pain:: Reports pain no longer constant, no pain at rest - Treatment Modality: US with ES (Comb.) Parameters/Method Applied: 10mins US at 1.5w/cm2 and Estim 7-9 p.v. to the left neck, traps, and lateral upper arm. Patient Position: Supine Interventions - Exercise/Activities/Manual Therapy Exercises/Activities: Assisted stretching cervical lateral flexion, lev scap, and anterior chest stretch. Isometric cervical retraction. Isometric shoulder extension. In sitting, assisted scalene stretch. Supine with towel roll at c- spine for postural correction. Total minutes of Exercise: 12mins Manual Therapy: Myofascial release, trigger point release, and occipital release. Myofascial work focus on the right upper traps, SCM, and scalenes. Total minutes of Manual Therapy: 22mins HOME EXERCISE PROGRAM: pt given written HEP including upper trap stretch and scalene stretch - Charges Timed Code Treatment Minutes: 44mins Total Treatment Time: 49mins Procedures billed for this date of service:: EMELY, CLARISSA, EX Assessment: Patient progressing with exercise and reporting a reduction in pain which is no longer constant. Patient Education: Home Exercise Program, Activity Modification Patient demonstrates compliance with HEP?: Yes Short Term Goals Goal #1: pt report that pain is no longer constant Goal to be met by: 04/25/18 Progress towards Goal:: Met Goal #2: Cervical rotation WFL's with no reports of pain. 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 Goal #1: pt report no radicular pain, cervical spine decreased and intermittent Goal to be met by: 05/09/18 Progress towards goal: Progressing Goal #2: pt independent with HEP, to continue with program after dc Goal to be met by: 05/09/18 Progress towards goal: Progressing Goal #3: pt with improved posture and decreased muscle tightness Goal to be met by: 05/09/18 Progress towards goal: Progressing Goal #4: pt report improved ability to perform normal daily tasks with less pain Goal to be met by: 05/09/18 Plan PLAN OF CARE EXPIRES ON:: 05/09/18 ORDER # VISITS AND/OR THROUGH DATE: 05/09/18 PLAN: Continue and progress postural stretching and correction exercises.
== END 2018-04-20 23:59 ==
PROVIDERS: ATTEND Family Medicine
DX: M54.2 Cervicalgia (principal)

== ENCOUNTER 2018-05-18 15:00 | Outpatient (RCR) ==
--- NOTE | 2018-04-24 16:27 | RS.OPPTDN ---
Subjective Date of Note: 04/24/18 Visit #: 5 Date of Evaluation: 04/11/18 Payer Source: Insurance Treatment Diagnosis: neck pain Current Subjective/complaints:: Patient reports he is seeing good progress with reduction in neck pain. States he has little to no pain over the weekend until he cleaned his house and had a flair-up of pain and soreness. *Precautions: pt with decreased sensation L side Pain Assessment - Pain Description Pain Location: neck Current Pain Intensity: does not rate Other Comments regarding Pain:: soreness at the left neck - Treatment Modality: US with ES (Comb.) Parameters/Method Applied: [id number] US at 1.5w/cm2 and Estim at 7-9 p.v. to the left lateral neck, cervical paraspinals, distal upper traps, and lateral upper arm. Patient Position: Supine Interventions - Exercise/Activities/Manual Therapy Exercises/Activities: Assisted stretching cervical lateral flexion, lev scap, and anterior chest stretch. Isometric cervical retraction. Isometric shoulder extension. In sitting, assisted scalene stretch. Total minutes of Exercise: 10mins Manual Therapy: Myofascial release, trigger point release, and occipital release. Myofascial work bialteral upper traps, SCM, and scalenes with focus on the right. Total minutes of Manual Therapy: 24mins HOME EXERCISE PROGRAM: pt given written HEP including upper trap stretch and scalene stretch - Charges Timed Code Treatment Minutes: 46mins Total Treatment Time: 48mins Procedures billed for this date of service:: CLARISSA HAN EX Assessment: Patient reporting progress. He is able to increase functional activities at home. Patient Education: Body/Joint mechanics, Home Exercise Program, Home Safety Patient demonstrates compliance with HEP?: Yes Short Term Goals Goal #1: pt report that pain is no longer constant Goal to be met by: 04/25/18 Progress towards Goal:: Met Goal #2: Cervical rotation WFL's with no reports of pain. 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 Goal #2: pt independent with HEP, to continue with program after dc Goal to be met by: 05/09/18 Progress towards goal: Progressing Goal #3: pt with improved posture and decreased muscle tightness Goal to be met by: 05/09/18 Progress towards goal: Partially Met Goal #4: pt report improved ability to perform normal daily tasks with less pain Goal to be met by: 05/09/18 Plan PLAN OF CARE EXPIRES ON:: 05/09/18 ORDER # VISITS AND/OR THROUGH DATE: 05/09/18 PLAN: Continue modalities, manual therapy, and exercise to reduce pain and increase functional activity level.
--- NOTE | 2018-04-26 16:14 | RS.OPPTDN ---
Subjective Date of Note: 04/26/18 Visit #: 6 Date of Evaluation: 04/11/18 Payer Source: Insurance Treatment Diagnosis: neck pain Current Subjective/complaints:: Patient reports he has seen good progress with neck pain. States he is going back to work on Tuesday and will not be able to keep appointment. Will call next week to reschedule. *Precautions: pt with decreased sensation L side Pain Assessment - Pain Description Pain Location: left knee Pain Description: Aching Current Pain Intensity: no pain at rest, mild with ROM - Treatment Modality: US with ES (Comb.) Parameters/Method Applied: [id number] US at 1.5w/cm2 and Estim at 7-9p.v. to the left neck, traps, and upper shoulder joint. Patient Position: Supine Interventions - Exercise/Activities/Manual Therapy Exercises/Activities: Assisted stretching cervical lateral flexion, lev scap, and cervical rotation. Assisted anterior chest stretch. Isometric cervical retraction. Isometric shoulder extension. Left shoulder ROM. In sitting, assisted scalene stretch. Total minutes of Exercise: 13mins Manual Therapy: Myofascial release, trigger point release, and occipital release. Myofascial work bialteral upper traps, SCM, and scalenes with focus on the right. Total minutes of Manual Therapy: 24mins HOME EXERCISE PROGRAM: pt given written HEP including upper trap stretch and scalene stretch - Charges Timed Code Treatment Minutes: 48mins Total Treatment Time: 52mins Procedures billed for this date of service:: CLARISSA HAN EX Assessment: Patient has reponded well to treatment with reports of pain reduction. He is returning to work. Patient Education: Home Exercise Program Patient demonstrates compliance with HEP?: Yes Short Term Goals Goal #1: pt report that pain is no longer constant Goal to be met by: 04/25/18 Progress towards Goal:: Met Goal #2: Cervical rotation WFL's with no reports of pain. 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 Goal #1: pt report no radicular pain, cervical spine decreased and intermittent Goal to be met by: 05/09/18 Progress towards goal: Met Goal #2: pt independent with HEP, to continue with program after dc Goal to be met by: 05/09/18 Progress towards goal: Partially Met Goal #3: pt with improved posture and decreased muscle tightness Goal to be met by: 05/09/18 Progress towards goal: Partially Met Goal #4: pt report improved ability to perform normal daily tasks with less pain Goal to be met by: 05/09/18 Progress towards goal: Met Plan PLAN OF CARE EXPIRES ON:: 05/09/18 ORDER # VISITS AND/OR THROUGH DATE: 05/09/18 PLAN: May resume treatment next week, working toward meeting goals.
--- NOTE | 2018-05-18 15:22 | RS.PTSUM ---
Progress Note/Summary Date of Note: 05/18/18 Date of Evaluation: 04/11/18 Number of Visits: 7 Reporting Period for this Progress Note: 04/11-05/18/18 Current Complaints/Gains: pt states he is ready to resume PT. 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 He states he was working 16 hr days and unable to make it to PT. pt states his neck and upper trap/scapular area feel like he has just been through PT all the time. Objective Measurements/Presentation: pt cervical flex/ext WFL's with pain, cervical rotation to L limited as well as R lat side bending limited. pt c/o discomfort on L upper trap/scapular area with R lat bending. pt presents with trigger point in L upper trap as well as medial border of scapula. G Codes: n/a Source of G Code Score: n/a - Short Term Goals Goal #1: pt report that pain is no longer constant Goal to be met by: 04/25/18 Progress towards Goal:: Met Goal #2: Cervical rotation WFL's with no reports of pain. 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:: Met - [facility] Goals Goal #1: pt report no radicular pain, cervical spine decreased and intermittent Goal to be met by: 05/09/18 Progress towards goal: Met Goal #2: pt independent with HEP, to continue with program after dc Goal to be met by: 06/01/19 (updated 05/18/18) Goal #3: pt with improved posture and decreased muscle tightness Goal to be met by: 06/01/19 Goal #4: pt report improved ability to perform normal daily tasks with less pain Goal to be met by: 05/09/18 Progress towards goal: Met - Assessment Assessment of Improvement/Progress: pt had initially met STG 1, 3, LTG 1, 4. pt has regressed somewhat due to going back to work and not being seen by PT since 04/26/18. pt with limited cervical ROM, increased muscle tightness and trigger points in L upper trap and scapular area. Summary: Patient demonstrates potential to gain increased function with therapy - Plan Plan: Continue Plan of Care Comments: Feel pt would benefit from resuming PT for stretching, manual therapy, strengthening to improve mobility. Frequency: 2 X week Duration: 2 weeks PLAN OF CARE EXPIRES ON:: 06/01/18 ORDER # VISITS AND/OR THROUGH DATE: 06/01/18
--- NOTE | 2018-05-18 16:29 | RS.OPPTDN ---
Subjective Date of Note: 05/18/18 Visit #: 7 Date of Evaluation: 04/11/18 Payer Source: Insurance Treatment Diagnosis: neck pain Current Subjective/complaints:: Patient reports soreness left knee, traps. Reports pain with trigger point work. *Precautions: pt with decreased sensation L side - Treatment Parameters/Method Applied: [id number] US at 1.5w/cm2 and Estim 7p.v. to the left traps and along the lateral cervical paraspinals. Patient Position: Supine - Heat/Cryotherapy Treatment: Hot Pack ([id number] to the c-spine prior to USCOM and MT. Patient in sitting. ) Interventions - Exercise/Activities/Manual Therapy Exercises/Activities: Assisted stretching cervical lateral flexion, lev scap, and cervical rotation. Assisted anterior chest stretch. Isometric cervical retraction. Isometric shoulder extension. Left shoulder ROM, mid scap stretch with UE across body. Total minutes of Exercise: 5mins Manual Therapy: Myofascial release, trigger point release, and occipital release. Myofascial work to the left upper traps, SCM, and scalenes. Total minutes of Manual Therapy: 15mins HOME EXERCISE PROGRAM: pt given written HEP including upper trap stretch and scalene stretch - Objective Findings Observations,measurements,etc.: Active trigger point at left scalenes. - Charges Timed Code Treatment Minutes: 32mins Total Treatment Time: 47mins Procedures billed for this date of service:: HP, USCOM, MT Assessment: Patient with increased muscle tone. Will benefit from MT and progressive stretching and postural correction. Patient Education: Home Exercise Program Patient demonstrates compliance with HEP?: Yes Short Term Goals Goal #1: pt report that pain is no longer constant Goal to be met by: 04/25/18 Progress towards Goal:: Met Goal #2: Cervical rotation WFL's with no reports of pain. 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 Goal #1: pt report no radicular pain, cervical spine decreased and intermittent Goal to be met by: 05/09/18 Progress towards goal: Met Goal #2: pt independent with HEP, to continue with program after dc Goal to be met by: 06/01/19 (updated 05/18/18) Goal #3: pt with improved posture and decreased muscle tightness Goal to be met by: 06/01/19 Goal #4: pt report improved ability to perform normal daily tasks with less pain Goal to be met by: 05/09/18 Progress towards goal: Met Plan PLAN OF CARE EXPIRES ON:: 06/01/18 ORDER # VISITS AND/OR THROUGH DATE: 06/01/18 PLAN: Continue modalities, manual therapy, and progressive postural correction to reduce pain and increase functional activity level.
== END 2018-05-20 23:59 ==
PROVIDERS: ATTEND Family Medicine
DX: M54.2 Cervicalgia (principal); M75.42 Impingement syndrome of left shoulder

== ENCOUNTER 2018-05-26 14:00 | Outpatient (RCR) ==
--- NOTE | 2018-05-22 15:39 | RS.OPPTDN ---
Subjective Date of Note: 05/22/18 Visit #: 8 Date of Evaluation: 04/11/18 Payer Source: Insurance Treatment Diagnosis: neck pain Current Subjective/complaints:: Patient reports soreness left lateral neck and upper traps. *Precautions: pt with decreased sensation L side Pain Assessment - Pain Description Pain Location: Left lateral neck and upper traps Other Comments regarding Pain:: Does not rate on 0-10 scale but states pain is mild and mostly constant - Treatment Modality: US with ES (Comb.) Parameters/Method Applied: [id number] US at 1.5w/cm2 and Estim 7p.v. to the left lateral neck, left cervical paraspinals, and upper traps. Patient Position: Supine Interventions - Exercise/Activities/Manual Therapy Exercises/Activities: PROM of the left shoulder. In sitting, assisted stretching cervical lateral flexion, lev scap, and cervical rotation. Total minutes of Exercise: 3mins Manual Therapy: Myofascial release, trigger point release, and occipital release. Also, myofascial work to the left upper traps, SCM, and scalenes. Total minutes of Manual Therapy: 30mins HOME EXERCISE PROGRAM: pt given written HEP including upper trap stretch and scalene stretch - Charges Timed Code Treatment Minutes: 45mins Total Treatment Time: 45mins Procedures billed for this date of service:: USCOM, MTx2 Assessment: Patient able to tolerate increase in manual trigger point work and passive stretching. Patient Education: Body/Joint mechanics, Home Exercise Program Patient demonstrates compliance with HEP?: Yes Short Term Goals Goal #1: pt report that pain is no longer constant Goal to be met by: 04/25/18 Progress towards Goal:: Met Goal #2: Cervical rotation WFL's with no reports of pain. 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:: Met [facility]sp Goals Goal #1: pt report no radicular pain, cervical spine decreased and intermittent Goal to be met by: 05/09/18 Progress towards goal: Met Goal #2: pt independent with HEP, to continue with program after dc Goal to be met by: 06/01/19 (updated 05/18/18) Progress towards goal: Progressing Goal #3: pt with improved posture and decreased muscle tightness Goal to be met by: 06/01/19 Progress towards goal: Progressing Goal #4: pt report improved ability to perform normal daily tasks with less pain Goal to be met by: 05/09/18 Progress towards goal: Met Plan PLAN OF CARE EXPIRES ON:: 06/01/18 ORDER # VISITS AND/OR THROUGH DATE: 06/01/18 PLAN: Continue modalities and progress manual therapy and postural correction to reduce pain and increase functional activity level.
--- NOTE | 2018-05-26 16:19 | RS.OPPTDN ---
Subjective Date of Note: 05/26/18 Visit #: 9 Date of Evaluation: 04/11/18 Payer Source: Insurance Treatment Diagnosis: neck pain Current Subjective/complaints:: Patient reports he has not seen only min changes with current treatment. Reports pervious treatment had reduced left shoulder and UE symptoms and she was hopeful treatment would also help with upper trap pain. Pain has been nearly constant since working last month. Patient has decided to stop at this time and will continue HEP. *Precautions: pt with decreased sensation L side Pain Assessment - Pain Description Pain Location: Left upper traps - Treatment Modality: US with ES (Comb.) Parameters/Method Applied: x12min US at 1.5w/cm2 and Estim to 6p.v to the left UT, then Estim to left lat neck and along SCM. Patient Position: Supine Interventions - Exercise/Activities/Manual Therapy Exercises/Activities: In sitting, assisted stretching cervical lateral flexion, lev scap, and cervical rotation. Discussion of HEP and need to continue stretch and postural strengthening. Total minutes of Exercise: 5mins Manual Therapy: Myofascial release, trigger point release, and occipital release. Also, myofascial work to the bialteral upper traps, left SCM, and left scalenes. Manual cervical traction and occipital release. Total minutes of Manual Therapy: 24mins HOME EXERCISE PROGRAM: pt given written HEP including upper trap stretch and scalene stretch - Charges Timed Code Treatment Minutes: 41mins Total Treatment Time: 43mins Procedures billed for this date of service:: USCOM, EX2 Assessment: Patient has reported some progress but continues to have pain and muscle tension in the left upper traps. Patient Education: Body/Joint mechanics, Home Exercise Program Patient demonstrates compliance with HEP?: Yes Short Term Goals Goal #1: pt report that pain is no longer constant Goal to be met by: 04/25/18 Progress towards Goal:: Regressing Goal #2: Cervical rotation WFL's with no reports of pain. 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 Goal #1: pt report no radicular pain, cervical spine decreased and intermittent Goal to be met by: 05/09/18 Progress towards goal: Met Goal #2: pt independent with HEP, to continue with program after dc Goal to be met by: 06/01/19 (updated 05/18/18) Progress towards goal: Progressing Goal #3: pt with improved posture and decreased muscle tightness Goal to be met by: 06/01/19 Progress towards goal: Progressing Goal #4: pt report improved ability to perform normal daily tasks with less pain Goal to be met by: 05/09/18 Progress towards goal: Met Plan PLAN OF CARE EXPIRES ON:: 06/01/18 ORDER # VISITS AND/OR THROUGH DATE: 06/01/18 PLAN: Discharge at patient request due to plateau in progress. Patient to continue HEP.
--- NOTE | 2018-06-15 11:47 | RS.QUICKDC ---
Discharge from PT Date of Discharge: 06/15/18 Number of Visits: 9 Reason for Discharge: Patient attended 9 sessions and reported some progress. During last session, patient reported he felt like he was at a plateau in progress. Discharge at this time with HEP.
== END 2018-06-20 23:59 ==
PROVIDERS: ATTEND Family Medicine
DX: M54.2 Cervicalgia (principal)

== ENCOUNTER 2019-02-23 04:04 | Emergency (ER) | payer OTHER ==
[2019-02-23 04:04] VITALS: BMI 23.6
[2019-02-23 04:07] VITALS: BP 130/82; TEMP 98.3
[2019-02-23] MEDS ORDERED: BOOSTRIX IM ONE (04:07)
[2019-02-23] MEDS ORDERED: LIDOCAINE HCL 1% SDV SUBCUT STA (04:31)
--- NOTE | 2019-02-23 04:33 | ED.PDOC ---
General ED Provider: Dr. GLORIA BARBA Chief Complaint: Finger Laceration Stated Complaint: patient sustained a laceration to the left index figer with a knief while cutting a piece of meat loaf. [place] is not up to date. Time Seen by Physician: 04:31 Mode of Arrival: Walk-In Information Source: Patient Exam Limitations: No limitations Primary Care Provider: KALINA POLLARD Nursing and Triage Documentation Reviewed and Agree: Yes Does patient meet sepsis criteria?: No System Inflammatory Response Syndrome: Not Applicable Sepsis Protocol: For patient's 13 years and over: Temp is 96.8 and below OR 101 and greater Pulse >90 BPM Resp >20/minute Acutely Altered Mental Status Are patient's symptoms suggestive of a new infection, such as: -Pneumonia -Skin, Soft Tissue -Endocarditis -UTI -Bone, Joint Infection -Implantable Device -Acute Abdominal Infection -Wound Infection -Meningitis -Blood Stream Catheter Infection -Unknown Skin Complaint Exam - Laceration/Abrasion/Hand Complaint/Exam Location of Injury: Left, Digit #2 Mechanism of Injury: Laceration Onset/Duration: just piror to arrival Symptoms Are: Still present Initial Severity: Moderate Current Severity: Mild Aggravating: Movement Alleviating: Compression Associated Signs and Symptoms: Denies: Fever, Chills, Erythema, Numbness, Tingling Related History: Reports: Right hand dominant Hand Picture: 1 - 2 cm linear lacertion Differential Diagnoses: Laceration Review of Systems - Review Of Systems Constitutional: Reports: No symptoms Eyes: Reports: No symptoms Ears, Nose, Mouth, Throat: Reports: No symptoms Respiratory: Reports: No symptoms Cardiac: Reports: No symptoms GI: Reports: No symptoms : Reports: No symptoms Musculoskeletal: Reports: No symptoms Skin: Reports: Other (bleeding when bent) Neurological: Reports: Anxiety Endocrine: Reports: No symptoms Hematologic/Lymphatic: Reports: No symptoms All Other Systems: Reviewed and Negative Past Medical History - Past Medical History Previously Healthy: No Endocrine: Reports: None Cardiovascular: Reports: None Respiratory: Reports: None Hematological: Reports: None Gastrointestinal: Reports: None Genitourinary: Reports: None Neuro/Psych: Reports: CVA (BLEED 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 VISUAL CUT 2009), Other (MS) Musculoskeletal: Reports: None Cancer: Reports: None - Surgical History General Surgical History: Reports: Back Surgery ([id number] LAMINECTOMY ) - Family History Family History: Reports: Other (MATERNAL AUNT MS,PER MOTHER SISTER AND COUSIN WITH NVD) - Social History Smoking Status: Current every day smoker, Heavy tobacco smoker Hx Substance Use: No Alcohol Screening: None - Immunizations Tetanus Shot up to Date: No Physical Exam - Physical Exam Appearance: Well-appearing Pain Distress: None Musculoskeletal: ROM intact Skin: Warm, Dry Neurological: Alert, Oriented Psychiatric: Anxious Procedures - Laceration/Wound Repair left index finger Wound Description: Linear Wound Length (cm): 2 Wound Width: 0.1 Wound Depth: 0.1 Wound Explored: Clean Wound Irrigated: No Wound Prep: Hibiclens Anesthesia: Lidocaine Wound Repaired With: Sutures Suture Size and Type: ethlone Number of Sutures: 6 (running ) Layer Closure?: No Sterile Dressing Applied?: Yes Splint Applied?: No Sling Applied?: No Progress: Tolerated well Critical Care Note - Critical Care Note Total Time (mins): 0 Course - Course Orders, Labs, Meds: Orders Category Date Time Status Wound care [ED WOUND CARE] .ONCE EMERGENCY 02/23/19 04:31 Ordered Diphth,Pertuss(Acell),Tet Vac [Boostrix] MEDS 02/23/19 04:07 Discontinued 0.5 ml IM .ONCE ONE Lidocaine HCl/Pf [Lidocaine HCl 1% Sdv] MEDS 02/23/19 04:31 Stat 5 ml SUBCUT ONCE STA Medications Discontinued Medications Generic Name Dose Route Start Last Admin Trade Name Nona PRN Reason Stop Dose Admin Diphtheria/Pertussis/Tetanus Vacc 0.5 ml 02/23/19 04:07 02/23/19 04:20 Boostrix IM 02/23/19 04:08 0.5 ml .ONCE ONE Administration Lidocaine HCl 5 ml 02/23/19 04:31 02/23/19 04:38 Lidocaine Hcl 1% Sdv SUBCUT 02/23/19 04:32 5 ml ONCE STA Administration Vital Signs: Temp Pulse Resp BP Pulse Ox 02/23/19 04:05 98.3 F 85 16 130/82 96 Departure - Departure Time of Disposition: 05:00 Disposition: HOME SELF-CARE Discharge Problem: Laceration of finger Instructions: Finger Laceration (ED) Condition: Stable Pt referred to PMD for follow-up: Yes IPMP verified?: No Additional Instructions: Take Tylenol or motrin as needed for pain Follow up wit PCP in 7-10 days to have sutures removed. Allergies/Adverse Reactions: Allergies No Known Allergies Allergy (Verified 02/23/19 04:06) Home Medications: Ambulatory Orders Fingolimod HCl [Gilenya] 0.5 mg PO DAILY 02/08/14 Disposition Discussed With: Patient, Family
== END 2019-02-23 05:05 | disposition home or self-care (01) ==
LOC: ED 04:04
DX: S61.211A Laceration without foreign body of left index finger without damage to nail, initial encounter (principal); W26.0XXA Contact with knife, initial encounter; F17.210 Nicotine dependence, cigarettes, uncomplicated
CPT/HCPCS: 90471; 90715; 96372; 99283